=== PATIENT | male | born 1935 | race Caucasian/White ===

== ENCOUNTER 2018-06-29 14:58 | Inpatient (IN) ==
--- NOTE | 2018-06-29 15:08 | Emergency Department Note ---
Disposition Clinical Impression: Community acquired pneumonia Disposition: Admitted As Inpatient Condition: Fair Referrals: Kerwin Sutherland DO [Primary Care Provider] - Forms: ED Satisfaction Letter Time of Disposition: 16:47 SOB HPI - General Chief Complaint: ED Shortness of Breath/Dyspnea Stated Complaint: Shortness of Breath Time Seen by Provider: 06/29/18 15:08 Source: patient Mode of arrival: ambulatory Limitations: no limitations Nursing Notes Reviewed: Yes Vital Signs Reviewed: Yes - History of Present Illness 82-year-old gentleman who presents by EMS today for shortness of breath. He is a history of A. fib. He was recently diagnosed and treated for pneumonia level. He Is Started on Clindamycin Last Couple of Days for Some Enlarged Lymph Nodes. He States That He Has a Productive Cough with White Sputum. He Has Not Had Fevers or Chills at Home. He States He Just Feels Very Worn out He Feels Increasing in Short of Breath. No changes to his medications otherwise than the antibiotics. He is not missing any doses of his antibiotics. Pt Subjective Complaint: shortness of breath - Related Data Home Medications Medication Instructions Recorded Confirmed Aspirin [Lo-Dose Aspirin EC] 81 mg PO DAILY 02/04/16 06/29/18 Sertraline [Zoloft] 100 mg PO DAILY 02/04/16 06/29/18 Clindamycin [Cleocin] 300 mg PO Q8HR 06/29/18 06/29/18 Furosemide [Lasix] 40 mg PO DAILY 06/29/18 06/29/18 Midodrine HCl 5 mg PO BID 06/29/18 06/29/18 Previous Rx's Medication Instructions Recorded Acetaminophen [Tylenol] 650 mg PO Q6HR PRN tablet 03/05/18 Melatonin 3 mg PO HS tablet 03/05/18 Omeprazole [PriLOSEC] 40 mg PO DAILY@0630 capsule. 03/05/18 Allergies Allergy/AdvReac Type Severity Reaction Status Date / Time Penicillins [PCN] Allergy Hives Verified 06/29/18 15:13 Review of Systems: All other systems are negative except as noted/marked Chart generated with voice recognition software Nursing notes reviewed Old records reviewed Past Medical History - Past Medical History Attestation: Yes The following information was validated with the patient. Source: patient, old records reviewed, nursing notes reviewed Medical history: Reports: asthma, atrial fibrillation, cancer, CHF, COPD, hyperlipidemia Surgical history: Reports: cancer surgery, colectomy, herniorrhaphy, tonsilectomy, pacemaker Psychiatric history: Reports: anxiety, depression - Social History Smoking Status: Former smoker Smokeless Tobacco Status: Yes (chewing tobacco) Alcohol use: Reports: none Drug use: Reports: none Physical Exam General: NAD, VSS Head: normocephalic, atraumatic Eyes: EOMI, PERRLA mouth: Dry mucous membranes Neck: NO CLA, Supple Chest wall: normal rise, no crepitus, no deformity noted Lungs: Coarse breath sounds on the right with wheezing diminished lung sounds on the left Heart: Tachycardic and irregular Abd: soft, nontender, BS normal : deferred MSK: strength equal in all four extremities Ext: moves all four extremities, no obvious deformities Skin: cap refill normal, warm, dry neuro : CN2-12 grossly intact, A&Ox3 Psych: normal affect, not anxious Course Vital Signs Temperature 97.8 F 06/29/18 15:03 Pulse Rate 93 06/29/18 15:03 Respiratory Rate 17 06/29/18 15:03 Blood Pressure 90/69 06/29/18 15:03 O2 Sat by Pulse Oximetry 96 06/29/18 15:03 Temperature 97.8 F 06/29/18 15:03 Pulse Rate 104 06/29/18 16:42 Respiratory Rate 22 06/29/18 16:42 Blood Pressure 107/73 06/29/18 16:42 O2 Sat by Pulse Oximetry 93 06/29/18 16:42 Oxygen Delivery Oxygen Delivery Nasal Cannula Shortness of Breath/Dyspnea - [facility] Narrative Medical decision making narrative: 82-year-old gentleman who presents today with worsening shortness of breath from home. He is on clindamycin and just finished Levaquin at home. He has penicillin allergy. I started him on Rocephin and doxycycline here. He is a new pneumonia and his old pneumonia has not cleared. With IV fluids his heart rate has improved since in the 100s now. He is feeling a little better after one Xopenex treatment. I gave him Xopenex because when he got here his heart rate was in the 130s and his blood pressure was in the 90s systolic from the 2 albuterol she got by EMS. Blood cultures were obtained prior to antibiotic administration. Consult was placed to Dr. Rob at approximately 1645 for admission [id number] Rob orders placed. Patient's comfortable with admission into the hospital. - Medical Records Medical records reviewed: Yes I reviewed the patient's medical records. - Lab Data Lab results reviewed: Yes I reviewed the patient's lab results. Result diagrams: 06/29/18 15:57 06/29/18 15:57 Lab Results 06/29/18 06/29/18 06/29/18 Range/Units 15:57 15:57 15:57 WBC 9.0 (4.3-11.1) K/mcL RBC 3.81 L (4.19-5.50) M/mcL Hgb 11.5 L (12.9-16.9) g/dL Hct 36.3 L (37.5-50.1) % MCV 95.3 (83.0-100.0) fL MCH 30.2 (28.0-33.3) pg MCHC 31.7 (31.6-35.5) g/dL RDW 14.4 (11.5-14.5) % Plt Count 191 (140-400) K/mcL MPV 8.7 L (9.4-12.4) fL Immature Gran % 0.7 (0-4) % Seg Neutrophils % 78.1 % Lymphocytes % 13.0 % Monocytes % 7.0 % Eosinophils % 1.0 % Basophils % 0.2 % Neutrophils # 7.0 (1.6-8.9) K/mcL Lymphocytes # 1.2 (0.6-4.6) K/mcL Monocytes # 0.6 (0.0-1.3) K/mcL Eosinophils # 0.1 (0.0-0.6) K/mcL Basophils # 0.0 (0.0-0.2) K/mcL PT (9.4-12.1) Seconds INR APTT (26.0-36.0) Seconds Sample Site ABG pH (7.32-7.45) pH Units ABG pCO2 (35-45) mmHg ABG pO2 (85-104) mmHg ABG HCO3 (21-27) mEq/L ABG Total CO2 (20-26) mEq/L ABG O2 Saturation (95-98) % ABG Base Excess (-2 to 3) mEq/L Vitaliy Test O2 Delivery Device Inspired O2 (1-15=lpm [id number]=%) Sodium 138 (136-145) mEq/L Potassium 3.4 L (3.5-5.1) mEq/L Chloride 97 L (98-107) mEq/L Carbon Dioxide 34 H (23-29) mEq/L BUN 21 (8-23) mg/dL Creatinine 0.80 (0.70-1.30) mg/dL Est GFR ( Amer) > 60 (> 60) Est GFR (Non-Af Amer) > 60 (> 60) BUN/Creatinine Ratio 26 (6-26) Glucose 103 (70-105) mg/dL Calculated Osmolality 289 (280-300) Lactic Acid 1.2 (0.5-2.2) mmol/L Calcium 8.3 L (8.6-10.3) mg/dL Troponin I < 0.03 (< 0.04) ng/mL B-Natriuretic Peptide (Less than 100) pg/mL 06/29/18 06/29/18 06/29/18 Range/Units 15:57 15:57 15:57 WBC (4.3-11.1) K/mcL RBC (4.19-5.50) M/mcL Hgb (12.9-16.9) g/dL Hct (37.5-50.1) % MCV (83.0-100.0) fL MCH (28.0-33.3) pg MCHC (31.6-35.5) g/dL RDW (11.5-14.5) % Plt Count (140-400) K/mcL MPV (9.4-12.4) fL Immature Gran % (0-4) % Seg Neutrophils % % Lymphocytes % % Monocytes % % Eosinophils % % Basophils % % Neutrophils # (1.6-8.9) K/mcL Lymphocytes # (0.6-4.6) K/mcL Monocytes # (0.0-1.3) K/mcL Eosinophils # (0.0-0.6) K/mcL Basophils # (0.0-0.2) K/mcL PT 13.5 H (9.4-12.1) Seconds INR 1.2 APTT 31.8 (26.0-36.0) Seconds Sample Site R Radial ABG pH 7.49 H (7.32-7.45) pH Units ABG pCO2 40 (35-45) mmHg ABG pO2 64 L (85-104) mmHg ABG HCO3 30 H (21-27) mEq/L ABG Total CO2 31 H (20-26) mEq/L ABG O2 Saturation 94 L (95-98) % ABG Base Excess 6 H (-2 to 3) mEq/L Vitaliy Test Positive O2 Delivery Device Cannula Inspired O2 2.0 (1-15=lpm [id number]=%) Sodium (136-145) mEq/L Potassium (3.5-5.1) mEq/L Chloride (98-107) mEq/L Carbon Dioxide (23-29) mEq/L BUN (8-23) mg/dL Creatinine (0.70-1.30) mg/dL Est GFR ( Amer) (> 60) Est GFR (Non-Af Amer) (> 60) BUN/Creatinine Ratio (6-26) Glucose (70-105) mg/dL Calculated Osmolality (280-300) Lactic Acid (0.5-2.2) mmol/L Calcium (8.6-10.3) mg/dL Troponin I (< 0.04) ng/mL B-Natriuretic Peptide 2956 H (Less than 100) pg/mL - Radiology Data Radiology results reviewed: Yes I reviewed the patient's radiology results. EXAMINATION: SINGLE XRAY VIEW OF THE CHEST 06/29/2018 3:56 pm COMPARISON: 06/21/2018 HISTORY: ORDERING SYSTEM PROVIDED HISTORY: dyspnea Pneumonia, follow-up. FINDINGS: There has been interval development of abnormal airspace consolidation within the right upper lobe consistent with a right upper lobe pneumonia. There is improved aeration within the left lower lobe. There are small bilateral pleural effusions, left greater than right. The mediastinal and cardiac contours are stable. XR/XR chest 1V portable IMPRESSION: 1. New right upper lobe pneumonia. 2. Persistent but improving left lower lobe pneumonia. 3. Small bilateral pleural effusions. Follow-up imaging is recommended after treatment to ensure resolution. D/ / Gorge Calle MD / Gorge Calle MD Interpreting Provider: Gorge Calle MD - EKG Data EKG attestation: Yes I reviewed and interpreted this EKG. EKG results narrative: EKG interpreted by myself as a sinus rhythm with a rate of 94 QTc of [address] elevation
[2018-06-29] MEDS ORDERED: Levalbuterol Neb 1.25 MG/3 ML IH STA (15:20)
[2018-06-29] MEDS ORDERED: 0.9 % Sodium Chloride 1,000 ML IVC ONE (15:28)
[2018-06-29] MEDS ORDERED: methylPREDNISolone 125 MG/2 ML VIAL IVP ONE (15:28)
[2018-06-29 16:00] LABS: ABG Base Excess 6 mEq/L (-2 to 3); ABG HCO3 30 mEq/L (21-27); ABG Oxygen Saturation 94 % (95-98); ABG PCO2 40 mmHg (35-45); ABG PH 7.49 pH Units (7.32-7.45); ABG PO2 64 mmHg (85-104); ABG TCO2 31 mEq/L (20-26)
[2018-06-29 16:06] LABS: Basophils % 0.2 %; Eosinophils # 0.1 K/mcL (0.0-0.6); Hematocrit 36.3 % (37.5-50.1); Hemoglobin 11.5 g/dL (12.9-16.9); Immature Granulocytes % 0.7 % (0-4); Lymphocytes # 1.2 K/mcL (0.6-4.6); Mean Corpuscular HGB Conc 31.7 g/dL (31.6-35.5); Mean Corpuscular Hemoglobin 30.2 pg (28.0-33.3); Mean Corpuscular Volume 95.3 fL (83.0-100.0); Mean Platelet Volume 8.7 fL (9.4-12.4); Monocytes # 0.6 K/mcL (0.0-1.3); Platelet Count 191 K/mcL (140-400); Red Blood Count 3.81 M/mcL (4.19-5.50); Red Cell Distribution Width 14.4 % (11.5-14.5); Segmented Neutrophils % 78.1 %
[2018-06-29 16:13] LABS: INR 1.2; Prothrombin Time 13.5 Seconds (9.4-12.1)
[2018-06-29 16:16] LABS: Activated Partial Thrombo Time 31.8 Seconds (26.0-36.0)
[2018-06-29 16:24] LABS: BUN/Creatinine Ratio 26 (6-26); Blood Urea Nitrogen 21 mg/dL (8-23); Calcium 8.3 mg/dL (8.6-10.3); Carbon Dioxide 34 mEq/L (23-29); Chloride 97 mEq/L (98-107); Glucose 103 mg/dL (70-105); Osmolality,Calculated 289 (280-300); Potassium 3.4 mEq/L (3.5-5.1); Sodium 138 mEq/L (136-145); eGFR For Non-African Americans > 60 (> 60)
[2018-06-29 16:25] LABS: Troponin I < 0.03 ng/mL (< 0.04)
[2018-06-29] MEDS ORDERED: Doxycycline 100 MG in 0.9 % Sodium Chloride Mini Bag 100 ML IVPB ONE ×2 (16:31→18:08)
[2018-06-29] MEDS ORDERED: cefTRIAXone 1,000 MG in Water for inj. (sterile) 20 ML 10 ML IVP ONE (16:31)
[2018-06-29] MEDS ORDERED: Mag Hydrox/Al Hydrox/Simeth 30 ML UDC PO PRN (18:08)
[2018-06-29] MEDS ORDERED: MOM Conc 10 ML UD.LIQ PO PRN (18:08)
[2018-06-29] MEDS ORDERED: Naloxone 0.4 MG/ML INJ IVP PRN (18:08)
[2018-06-29] MEDS ORDERED: *HR* HYDROcodone/Acet 5/325 mg TABLET PO PRN (18:08)
[2018-06-29] MEDS ORDERED: Acetaminophen 325 MG TABLET PO PRN (18:08)
[2018-06-29] MEDS: Furosemide 40 MG TABLET PO SCH (19:07)
[2018-06-29] MEDS: Melatonin 3 MG TABLET PO SCH (22:18)
[2018-06-30 06:58] LABS: Hematocrit 32.4 % (37.5-50.1); Hemoglobin 10.3 g/dL (12.9-16.9); Mean Corpuscular HGB Conc 31.8 g/dL (31.6-35.5); Mean Corpuscular Hemoglobin 30.4 pg (28.0-33.3); Mean Corpuscular Volume 95.6 fL (83.0-100.0); Mean Platelet Volume 9.2 fL (9.4-12.4); Platelet Count 196 K/mcL (140-400); Red Blood Count 3.39 M/mcL (4.19-5.50); Red Cell Distribution Width 14.4 % (11.5-14.5)
[2018-06-30 07:22] LABS: BUN/Creatinine Ratio 27 (6-26); Blood Urea Nitrogen 22 mg/dL (8-23); Calcium 7.8 mg/dL (8.6-10.3); Carbon Dioxide 29 mEq/L (23-29); Chloride 101 mEq/L (98-107); Glucose 197 mg/dL (70-105); Magnesium 2.2 mg/dL (1.6-2.6); Osmolality,Calculated 295 (280-300); Potassium 3.8 mEq/L (3.5-5.1); Sodium 138 mEq/L (136-145); eGFR For Non-African Americans > 60 (> 60)
[2018-06-30] MEDS: Aspirin Enteric Coated 81 MG Tablet PO SCH (08:28)
[2018-06-30] MEDS: Furosemide 40 MG TABLET PO SCH (09:37)
[2018-06-30 10:21] LABS: Lymphocytes # 0.2 K/mcL (0.6-4.6); Monocytes # 0.2 K/mcL (0.0-1.3); Neutrophils # 8.4 K/mcL (1.6-8.9)
[2018-06-30 10:22] LABS: Hypersegmented Neutrophils Present (Not Present); Platelet Estimate Normal (Normal)
--- NOTE | 2018-06-30 12:34 | Internal Med History&Physical ---
Date of Encounter: 06/30/18 Time of Encounter: 11:50 Assessment and Plan (1) Community acquired pneumonia Current visit: Yes Status: Acute He was started on Rocephin and doxycycline in emergency room. Chest CT will be done to further evaluate. Qualifiers: Laterality: unspecified laterality Qualified Code(s): J18.9 - Pneumonia, unspecified organism (2) Nonischemic cardiomyopathy Current visit: No Status: Chronic Continue Lasix. A trial of Lanoxin will be given also. (3) Atrial fibrillation Current visit: No Status: Chronic Uncertainty why OAC not being used. Qualifiers: Atrial fibrillation type: chronic Qualified Code(s): I48.2 - Chronic atrial fibrillation (4) Anemia Current visit: Yes Status: Acute Anemia testing will be ordered. Qualifiers: Anemia type: unspecified type Qualified Code(s): D64.9 - Anemia, unspecified Internal Medicine - H&P: HPI Chief complaint: Dyspnea Admitted From: Emergency Dept Plans for Post Hospital Care: Home History of present illness: Mr. Bennett is a 82 year old male who came to emergency room complaining of increased dyspnea onset 1 week ago. He was seen at [facility] emergency room June 21 and was diagnosed with possible aspiration pneumonia. He was given Levaquin in emergency room and for 4 additional days afterward. He reports his breathing was significantly worse on June 28. He was started on clindamycin by his PCP providers. Dyspnea did not improve so he came to emergency room at [facility] on June 29 and was found to have evidence of right upper lobe pneumonia and persistent but improving left lower lobe pneumonia. He had bilateral small pleural effusions. He was admitted to [facility] floor for ongoing care needs. His respiratory history is significant for having smoked from approximately age [age]. He does not recall if PFTs have been done. He was recently prescribed oxygen for home use but uses it only on a prn basis. Past Med Surg Social Fam HX - Past Medical History Medical history: asthma, atrial fibrillation, cancer, CHF, COPD, hyperlipidemia Additional medical history: colon CA Psychiatric history: anxiety, depression - Past Surgical History Surgical History: cancer surgery, colectomy, herniorrhaphy, tonsilectomy, pacema ker Additional surgical history: colectomy - Social History Smoking Status: Former smoker Smokeless Tobacco Status: Yes (chewing tobacco) Alcohol use: none Drug use: none - Family History Father Hx Family Cardiac Disorders: Yes Mother Hx Family Endocrine Disorder: Yes (diabetes) Internal Medicine - H&P: Meds RX: Aspirin [Lo-Dose Aspirin EC] 81 mg PO DAILY 02/04/16 [History] RX: Sertraline [Zoloft] 100 mg PO DAILY 02/04/16 [History] RX: Acetaminophen [Tylenol] 650 mg PO Q6HR PRN tablet 03/05/18 [Rx] RX: Melatonin 3 mg PO HS tablet 03/05/18 [Rx] RX: Omeprazole [PriLOSEC] 40 mg PO DAILY@0630 capsule. 03/05/18 [Rx] Clindamycin [Cleocin] 300 mg PO Q8HR 06/29/18 [History] Furosemide [Lasix] 40 mg PO DAILY 06/29/18 [History] RX: Midodrine HCl 5 mg PO BID 06/29/18 [History] Allergy/AdvReac Type Severity Reaction Status Date / Time Penicillins [PCN] Allergy Hives Verified 06/29/18 15:13 All Systems PM: A 10-system review of systems was performed and is negative for pertinent findings except as documented above in the HPI. Review of systems: Gen.: His weight has been stable at approximately 67 kg since July 2017 [facility] hospitalization Cardiovascular: He has nonischemic cardiomyopathy with LVEF 25% on echocardiogram 03/05/2018. The interventricular septum and posterior wall thickness measurements were 1.10 and 1.20 cm respectively. There was LAE at 4.80 cm. A large pleural effusion was present at that time. Previous echo ardiogram on 07/25/2017 showed right atrial enlargement reported without measurement recorded. There was moderate mitral regurgitation, [id number] tricuspid regurgitation, and mild to moderate pulmonic regurgitation. He has had AICD placement July 2017. He is on Midodrine for hypotension. He denies DVT or pulmonary embolus. He has chronic atrial fibrillation and is on aspirin. Family reports he has been on Coumadin in the past but has not used it for several years. The reason it was discontinued is unknown. Respiratory: As per history of present illness GI: He has occasional constipation. He denies disorders of his liver gallbladder or exocrine pancreas : He has BPH. He denies other kidney or bladder disorders. Neurologic: He denies large distribution strokes or seizures. Endocrine: He is uncertain of lipid status but thinks he may have history of hyperlipidemia. He denies diabetes or thyroid disease Hematology/oncology: He was unaware he had anemia on almost all labs since December 2014. He reports history of colon cancer 2006 with segmental resection and primary anastomosis. There is been no recurrence. His most recent colonoscopy was approximately 2015. He denies other blood disorders or internal malignancies. Psychiatric: He has depression and is on Zoloft. He denies other mental health issues Muscle skeletal: He denies arthritis gout or other bone joint or muscle disorders. - Constitutional Vitals: Temp Pulse Resp BP Pulse Ox 98.5 F 76 16 80/46 93 06/30/18 07:00 06/30/18 08:26 06/30/18 07:00 06/30/18 08:26 06/30/18 07:00 Exam: Gen.: He is a well-developed lean male lying in bed who appears in minimal distress at present time HEENT: Head is atraumatic and normal cephalic. Eyes: EOMI. There is no scleral icterus. Mouth: Mucosa is moist. Neck: Supple and nontender. There is no thyromegaly or adenopathy noted. Heart: Irregularly irregular without murmurs or gallops Lungs: Has diminished breath sounds diffusely. No inspiratory crackles or exp iratory wheezing is heard. Back: Straight without flank tenderness or presacral edema Abdomen: There is well-healed longitudinal surgical scar from previous abdominal surgery. No masses or guarding are noted. He has a visible left inguinal hernia. Extremities: He is wearing DEBORAH hose which I did not remove. There is no edema palpated through the DEBORAH hose. 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 Neurologic: Mental status: He is talkative and able to answer questions appropriately. Cranial nerves: Smile is symmetric. Forehead wrinkles bilaterally. Tongue protrudes midline. EOMI. Motor: There is no pronator drift. Cerebellar: Finger to nose is intact bilaterally. Skin: Warm and dry Internal Med - H&P Results - Labs CBC & Chem 7: 06/30/18 06:46 06/30/18 06:46 Labs: Short CBC 06/29/18 06/30/18 Range/Units 15:57 06:46 WBC 9.0 8.9 (4.3-11.1) K/mcL Hgb 11.5 L 10.3 L (12.9-16.9) g/dL Hct 36.3 L 32.4 L (37.5-50.1) % Plt Count 191 196 (140-400) K/mcL Neutrophils # 7.0 8.4 (1.6-8.9) K/mcL BMP 06/29/18 06/30/18 15:57 06:46 Sodium 138 138 Potassium 3.4 L 3.8 Chloride 97 L 101 Carbon Dioxide 34 H 29 BUN 21 22 Creatinine 0.80 0.83 Glucose 103 197 H Calcium 8.3 L 7.8 L Cardiac Enzymes 06/29/18 Range/Units 15:57 Troponin I < 0.03 (< 0.04) ng/mL - ABG Interpretation ABG results: 06/29/18 15:57 ABG pH 7.49 H ABG pCO2 40 ABG pO2 64 L ABG HCO3 30 H ABG Total CO2 31 H ABG O2 Saturation 94 L ABG Base Excess 6 H - Impressions ITS Impressions Chest X-Ray 06/29/18 15:28 IMPRESSION: 1. New right upper lobe pneumonia. 2. Persistent but improving left lower lobe pneumonia. 3. Small bilateral pleural effusions. Follow-up imaging is recommended after treatment to ensure resolution. D/ / Gorge Calle MD / Gorge Calle MD Interpreting Provider: Gorge Calle MD
[2018-06-30] MEDS: MOM Conc 10 ML UD.LIQ PO SCH (12:52)
[2018-06-30] MEDS: *HR* Digoxin 0.25 MG TABLET PO SCH (12:52)
[2018-06-30] MEDS: cefTRIAXone 1,000 MG in Water for inj. (sterile) 20 ML 10 ML IVP SCH (17:36)
[2018-06-30] MEDS: Doxycycline 100 MG in 0.9 % Sodium Chloride Mini Bag 100 ML IVPB SCH (17:40)
[2018-06-30 17:59] LABS: % Iron Saturation 4 % (20-55); Iron 11 mcg/dL (65-175); Transferrin 212 mg/dL (203-362)
[2018-06-30 18:15] LABS: Ferritin 114 ng/mL (20-250)
[2018-06-30 18:21] LABS: Folate 15.6 ng/mL (3.0-16.0)
[2018-06-30 18:22] LABS: Estimated Average Glucose 151 mg/dl; Hemoglobin A1C 6.9 %
[2018-06-30] MEDS: Melatonin 3 MG TABLET PO SCH (21:11)
[2018-06-30] MEDS: Lactobacillus 1 EACH CAP.SPRINK PO SCH (21:11)
[2018-07-01] MEDS: *HR* Enoxaparin 40 MG/0.4 ML SYRINGE SQ SCH (06:18)
[2018-07-01] MEDS: Doxycycline 100 MG in 0.9 % Sodium Chloride Mini Bag 100 ML IVPB SCH ×2 (06:19→17:22)
[2018-07-01 07:02] LABS: Basophils % 0.1 %; Eosinophils # 0.1 K/mcL (0.0-0.6); Eosinophils % 1.1 %; Hematocrit 36.1 % (37.5-50.1); Hemoglobin 11.5 g/dL (12.9-16.9); Immature Granulocytes % 0.5 % (0-4); Lymphocytes # 1.1 K/mcL (0.6-4.6); Lymphocytes % 12.7 %; Mean Corpuscular HGB Conc 31.9 g/dL (31.6-35.5); Mean Corpuscular Hemoglobin 30.7 pg (28.0-33.3); Mean Corpuscular Volume 96.3 fL (83.0-100.0); Mean Platelet Volume 9.3 fL (9.4-12.4); Monocytes # 0.6 K/mcL (0.0-1.3); Monocytes % 6.3 %; Neutrophils # 6.9 K/mcL (1.6-8.9); Platelet Count 257 K/mcL (140-400); Red Blood Count 3.75 M/mcL (4.19-5.50); Red Cell Distribution Width 14.5 % (11.5-14.5); Segmented Neutrophils % 79.3 %
[2018-07-01] MEDS: Lactobacillus 1 EACH CAP.SPRINK PO SCH ×2 (08:53→21:17)
[2018-07-01] MEDS: Aspirin Enteric Coated 81 MG Tablet PO SCH (08:53)
[2018-07-01] MEDS: Furosemide 40 MG TABLET PO SCH (08:53)
[2018-07-01] MEDS: *HR* Digoxin 0.25 MG TABLET PO SCH (08:53)
--- NOTE | 2018-07-01 09:58 | Internal Med Progress Note ---
Date of Encounter: 07/01/18 Time of Encounter: 09:45 - Assessment and plan (1) Community acquired pneumonia Current Visit: Yes Status: Acute Assessment and plan: July 01. Continue Rocephin and doxycycline with lactobacillus. Qualifiers: Laterality: unspecified laterality Qualified Code(s): J18.9 - Pneumonia, unspecified organism (2) Nonischemic cardiomyopathy Current Visit: No Status: Chronic Assessment and plan: July 01. BN peptide significantly improved at 1892. Continue Lasix and Lanoxin. (3) Atrial fibrillation Current Visit: No Status: Chronic Assessment and plan: July 01. Continue aspirin. PT and OT evaluation will be done to assess walking stability. Consideration for transition from aspirin to OAC will be done if feasible. Qualifiers: Atrial fibrillation type: chronic Qualified Code(s): I48.2 - Chronic atrial fibrillation (4) Anemia Current Visit: Yes Status: Acute Assessment and plan: July 01. Anemia testing showed iron 11, transferrin saturation 4%, transferrin 212, ferritin 114, B12 255, and folate 15.6. He will be started on ferrous sulfate with ascorbic acid. MMA will be checked to further assess B12 status. Qualifiers: Anemia type: unspecified type Qualified Code(s): D64.9 - Anemia, unspecified (5) Weakness Current Visit: Yes Status: Acute Assessment and plan: July 01. PT and OT evaluations will be done. - Subjective Interval history: July 01. He has no new complaints. - Constitutional Vitals: Temp Pulse Resp BP Pulse Ox 97.5 F L 87 16 102/67 95 07/01/18 06:38 07/01/18 06:38 07/01/18 06:38 07/01/18 06:38 07/01/18 06:38 Exam: Is resting comfortably in bed and appears in no acute distress. His affect is bright and cheerful. I reviewed his medications, lab results, and CT report. Internal Medicine: Result - Labs CBC & Chem 7: 07/01/18 05:44 06/30/18 06:46 Labs: Short CBC 06/30/18 07/01/18 Range/Units 06:46 05:44 WBC 8.7 (4.3-11.1) K/mcL Hgb 11.5 L (12.9-16.9) g/dL Hct 36.1 L (37.5-50.1) % Plt Count 257 (140-400) K/mcL Neutrophils # 8.4 6.9 (1.6-8.9) K/mcL - ABG Interpretation ABG results: ABG ABG pH 7.49 pH Units (7.32-7.45) H 06/29/18 15:57 ABG pCO2 40 mmHg (35-45) 06/29/18 15:57 ABG pO2 64 mmHg (85-104) L 06/29/18 15:57 ABG O2 Saturation 94 % (95-98) L 06/29/18 15:57 PT/INR, D-dimer PT 13.5 Seconds (9.4-12.1) H 06/29/18 15:57 - Impressions Impressions Chest CT 06/30/18 12:30 IMPRESSION: 1. Blood pool density of the heart is lower than that of the myocardium, typical of anemia. 2. Bilateral pleural effusion with bibasilar consolidation, left greater than right. 3. Patchy pneumonitis predominantly inferior right upper lobe corresponding to opacity seen on prior chest radiograph series. 4. Indeterminate ground-glass pulmonary nodules medial right upper lung may be related to the acute infectious process but should be followed with CT chest in 3 months to ensure stability. 5. Indeterminate right hepatic lobe lesion may reflect a simple cyst. Attention to this on follow-up CT abdomen with IV contrast recommended. D/ / Alex Matamoros / Alex Matamoros Interpreting Provider: Alex Matamoros Consult Discharge Plan - Plan Referrals: Kerwin Sutherland DO [Primary Care Provider] - 1 week
[2018-07-01] MEDS: cefTRIAXone 1,000 MG in Water for inj. (sterile) 20 ML 10 ML IVP SCH (17:23)
[2018-07-01] MEDS: Melatonin 3 MG TABLET PO SCH (21:17)
[2018-07-02] MEDS: Doxycycline 100 MG in 0.9 % Sodium Chloride Mini Bag 100 ML IVPB SCH ×2 (06:19→16:55)
[2018-07-02] MEDS: Ascorbic Acid 500 MG TABLET PO SCH (06:19)
[2018-07-02] MEDS: *HR* Enoxaparin 40 MG/0.4 ML SYRINGE SQ SCH (06:19)
[2018-07-02 07:14] LABS: Basophils % 0.3 %; Eosinophils # 0.2 K/mcL (0.0-0.6); Eosinophils % 1.5 %; Hematocrit 35.5 % (37.5-50.1); Hemoglobin 11.3 g/dL (12.9-16.9); Immature Granulocytes % 0.4 % (0-4); Lymphocytes # 0.9 K/mcL (0.6-4.6); Lymphocytes % 8.6 %; Mean Corpuscular HGB Conc 31.8 g/dL (31.6-35.5); Mean Corpuscular Hemoglobin 30.2 pg (28.0-33.3); Mean Corpuscular Volume 94.9 fL (83.0-100.0); Mean Platelet Volume 8.9 fL (9.4-12.4); Monocytes # 0.8 K/mcL (0.0-1.3); Monocytes % 7.2 %; Neutrophils # 8.7 K/mcL (1.6-8.9); Platelet Count 292 K/mcL (140-400); Red Blood Count 3.74 M/mcL (4.19-5.50); Red Cell Distribution Width 14.3 % (11.5-14.5)
[2018-07-02 07:32] LABS: BUN/Creatinine Ratio 28 (6-26); Blood Urea Nitrogen 22 mg/dL (8-23); Calcium 8.5 mg/dL (8.6-10.3); Carbon Dioxide 31 mEq/L (23-29); Chloride 100 mEq/L (98-107); Glucose 84 mg/dL (70-105); Osmolality,Calculated 285 (280-300); Potassium 4.6 mEq/L (3.5-5.1); Sodium 136 mEq/L (136-145); eGFR For Non-African Americans > 60 (> 60)
[2018-07-02] MEDS: Furosemide 40 MG TABLET PO SCH (08:15)
[2018-07-02] MEDS: Lactobacillus 1 EACH CAP.SPRINK PO SCH ×2 (08:15→20:36)
[2018-07-02] MEDS: Aspirin Enteric Coated 81 MG Tablet PO SCH (08:15)
[2018-07-02] MEDS: *HR* Digoxin 0.25 MG TABLET PO SCH (08:15)
--- NOTE | 2018-07-02 09:43 | Internal Med Progress Note ---
Date of Encounter: 07/02/18 Time of Encounter: 09:30 - Assessment and plan (1) Community acquired pneumonia Current Visit: Yes Status: Acute Assessment and plan: July 01. Continue Rocephin and doxycycline with lactobacillus. Qualifiers: Laterality: unspecified laterality Qualified Code(s): J18.9 - Pneumonia, unspecified organism (2) Nonischemic cardiomyopathy Current Visit: No Status: Chronic Assessment and plan: July 01. BN peptide significantly improved at 1892. Continue Lasix and Lanoxin. July 02. BN peptide has risen significantly to 3824. Continue Lasix Lanoxin. Start low-dose Coreg. (3) Atrial fibrillation Current Visit: No Status: Chronic Assessment and plan: July 01. Continue aspirin. PT and OT evaluation will be done to assess walking stability. Consideration for transition from aspirin to OAC will be done if feasible. Qualifiers: Atrial fibrillation type: chronic Qualified Code(s): I48.2 - Chronic atrial fibrillation (4) Anemia Current Visit: Yes Status: Acute Assessment and plan: July 01. Anemia testing showed iron 11, transferrin saturation 4%, transferrin 212, ferritin 114, B12 255, and folate 15.6. He will be started on ferrous sulfate with ascorbic acid. MMA will be checked to further assess B12 status. Qualifiers: Anemia type: unspecified type Qualified Code(s): D64.9 - Anemia, unspecified (5) Weakness Current Visit: Yes Status: Acute Assessment and plan: July 01. PT and OT evaluations will be done. - Subjective Interval history: July 01. He has no new complaints. July 02. He has no new complaints. - Constitutional Vitals: Temp Pulse Resp BP Pulse Ox 97.8 F 86 16 116/67 94 07/02/18 06:30 07/02/18 06:30 07/02/18 06:30 07/02/18 06:30 07/02/18 06:30 Exam: He is resting comfortably in bed and appears in no acute distress. His affect is overall cheerful. Extremities show no edema. Heart is regular without murmurs gallops or ectopics. Lungs are clear anteriorly and laterally. I reviewed his medications and lab results. Internal Medicine: Result - Labs CBC & Chem 7: 07/02/18 06:36 07/02/18 06:36 Labs: Short CBC 07/02/18 Range/Units 06:36 WBC 10.6 (4.3-11.1) K/mcL Hgb 11.3 L (12.9-16.9) g/dL Hct 35.5 L (37.5-50.1) % Plt Count 292 (140-400) K/mcL Neutrophils # 8.7 (1.6-8.9) K/mcL BMP 07/02/18 06:36 Sodium 136 Potassium 4.6 Chloride 100 Carbon Dioxide 31 H BUN 22 Creatinine 0.80 Glucose 84 Calcium 8.5 L - ABG Interpretation ABG results: ABG ABG pH 7.49 pH Units (7.32-7.45) H 06/29/18 15:57 ABG pCO2 40 mmHg (35-45) 06/29/18 15:57 ABG pO2 64 mmHg (85-104) L 06/29/18 15:57 ABG O2 Saturation 94 % (95-98) L 06/29/18 15:57 PT/INR, D-dimer PT 13.5 Seconds (9.4-12.1) H 06/29/18 15:57 Consult Discharge Plan - Plan Referrals: Kerwin Sutherland DO [Primary Care Provider] - 1 week
[2018-07-02] MEDS: MOM Conc 10 ML UD.LIQ PO SCH (12:43)
[2018-07-02] MEDS: Methyl Salicylate/Menthol 28 GM TUBE TP SCH ×2 (15:14→20:36)
[2018-07-02] MEDS: cefTRIAXone 1,000 MG in Water for inj. (sterile) 20 ML 10 ML IVP SCH (16:55)
--- NOTE | 2018-07-02 17:15 | Electrocardiograph Report ---
[place] [id number] Test Date: 2018-06-29 Pat Name: Fercho Bennett Department: EDP-14 Room: [facility] Gender: M [employer]: : 1935 Requested By: Karyna Veliz Order Number: [id number] Reading MD: Elise Byrne Measurements Intervals [place] Rate: 94 P: 124 OR: 224 QRS: 254 QRSD: 103 T: -43 QT: 443 QTc: 554 Interpretive Statements Right and left arm electrode reversal Sinus rhythm Ventricular premature complexes Prolonged OR interval RSR' in V1 or V2, right VCD or RVH Inferior infarct, old Prolonged QT interval Electronically Signed On 07-02-2018 17:13:31 EDT by Elise Byrne
[2018-07-02] MEDS: Melatonin 3 MG TABLET PO SCH (20:36)
[2018-07-03] MEDS: Doxycycline 100 MG in 0.9 % Sodium Chloride Mini Bag 100 ML IVPB SCH (06:10)
[2018-07-03] MEDS: *HR* Enoxaparin 40 MG/0.4 ML SYRINGE SQ SCH (06:11)
[2018-07-03] MEDS: Ascorbic Acid 500 MG TABLET PO SCH (06:11)
[2018-07-03 08:27] LABS: Basophils % 0.3 %; Eosinophils # 0.2 K/mcL (0.0-0.6); Eosinophils % 2.4 %; Hematocrit 34.5 % (37.5-50.1); Immature Granulocytes % 0.6 % (0-4); Lymphocytes % 11.4 %; Mean Corpuscular HGB Conc 31.9 g/dL (31.6-35.5); Mean Corpuscular Hemoglobin 30.3 pg (28.0-33.3); Mean Platelet Volume 8.8 fL (9.4-12.4); Monocytes # 0.6 K/mcL (0.0-1.3); Monocytes % 6.4 %; Neutrophils # 6.8 K/mcL (1.6-8.9); Platelet Count 305 K/mcL (140-400); Red Blood Count 3.63 M/mcL (4.19-5.50); Red Cell Distribution Width 14.1 % (11.5-14.5); Segmented Neutrophils % 78.9 %
[2018-07-03] MEDS: Lactobacillus 1 EACH CAP.SPRINK PO SCH (08:28)
[2018-07-03] MEDS: Aspirin Enteric Coated 81 MG Tablet PO SCH (08:29)
[2018-07-03] MEDS: *HR* Digoxin 0.25 MG TABLET PO SCH (08:29)
[2018-07-03] MEDS: Methyl Salicylate/Menthol 28 GM TUBE TP SCH (08:38)
[2018-07-03] MEDS: Furosemide 40 MG TABLET PO SCH (11:21)
--- NOTE | 2018-07-03 12:01 | Discharge Summary ---
Orders not resulted at time of discharge: Pending orders 06/29/18 15:57 Culture,Blood [BC] Stat 07/02/18 06:36 MMA (VIT B12 STATUS) AM 0400 Date of Encounter: 07/03/18 Time of Encounter: 11:45 - Discharge Diagnosis (1) Community acquired pneumonia Priority: Primary Status: Acute Qualifiers: Laterality: unspecified laterality Qualified Code(s): J18.9 - Pneumonia, unspecified organism (2) Nonischemic cardiomyopathy Priority: Secondary Status: Chronic (3) Atrial fibrillation Priority: Secondary Status: Chronic Qualifiers: Atrial fibrillation type: chronic Qualified Code(s): I48.2 - Chronic atrial fibrillation (4) Anemia Priority: Secondary Status: Acute Qualifiers: Anemia type: iron deficiency Iron deficiency anemia type: unspecified iron deficiency Qualified Code(s): D50.9 - Iron deficiency anemia, unspecified (5) Weakness Priority: Secondary Status: Chronic Hospital course: Mr. Bennett is a 82 year old male who came to emergency room complaining of increased dyspnea onset 1 week ago. He was seen at [facility] emergency room June 21 and was diagnosed with possible aspiration pneumonia. He was given Levaquin in emergency room and for 4 additional days afterward. He reports his breathing was significantly worse on June 28. He was started on clindamycin by his PCP providers. Dyspnea did not improve so he came to emergency room at [facility] on June 29 and was found to have evidence of right upper lobe pneumonia and persistent but improving left lower lobe pneumonia. He had bilateral small pleural ef fusions. He was admitted to [facility] floor for ongoing care needs. Initial orders were written by the emergency room physician. I saw him on June 30 and performed a history and physical. He was started on Rocephin and doxycycline in emergency room empirically for pneumonia. Chest CT was done to further evaluate. There was bilateral pleural effusions with bibasilar consolidation left greater than right. There was patchy pneumonitis predominantly in the inferior right upper lobe. There was indeterminate groundglass pulmonary nodules in the medial right upper lung with recommendation for follow-up CT in 3 months to ensure stability. There was indeterminate right hepatic lobe lesion possibly representing a simple cyst. A follow-up CT of the abdomen will be done as recommended. He had clinical stability and remained afebrile during his acute-care stay. WBC remained normal with minimal change in borderline left shift on differential. He will continue with IV antibiotic and probiotic for a few days in swing bed. He was continued on Lasix. Lanoxin was added for his nonischemic cardiomyopathy. Dyspnea lessened and BN peptide decreased to 1755 by day of discharge. He will continue this regimen in swing bed. Supplemental potassium was given and hypokalemia resolved. Anemia testing showed iron 11, transferrin saturation 4%, transferrin 212, ferritin 114, B12 255, and folate 15.6. He was started on oral ferrous sulfate with ascorbic acid. MMA was ordered to further assess his B12 status and result is pending at time of discharge to swing bed. TSH returned minimally elevated at 5.713. He had physical therapy and occupational therapy evaluations with ongoing interventions. He made satisfactory progress. On July 03 arrangements were complete for him to be discharged to swing bed for ongoing care needs. - Time Spent with Patient Total time spent providing and/or coordinating discharge services: - Discharge Medications Prescriptions: New Acetaminophen [Tylenol] 650 mg PO Q6HR PRN tablet PRN Reason: Mild Pain/Fever Doxycycline 100 mg IVPB Q12HR vial Ascorbic Acid [Vitamin C] 500 mg PO 0630 tablet Carvedilol [Coreg] 3.125 mg PO BIDWM tablet cefTRIAXone [Rocephin] 1,000 mg IVP Q24H vial Digoxin [Lanoxin] 0.25 mg PO DAILY tablet Ferrous Sulfate 325 mg PO 0630 tablet Lactobacillus [Culturelle] 1 each PO BID cap.sprink Methyl Salicylate/Menthol [Bengay] 1 appl TP BID tube MOM Conc [MILK OF MAGNESIA conc] 10 ml PO Q48H ud.liq Potassium Chloride 10 meq PO DAILY tab.er.prt Rivaroxaban [Xarelto] 15 mg PO 1700 365 Days tablet Zolpidem [Ambien] 5 mg PO HS PRN tablet PRN Reason: Insomnia Continue Acetaminophen [Tylenol] 650 mg PO Q6HR PRN tablet PRN Reason: Fever or pain Omeprazole [PriLOSEC] 40 mg PO DAILY@0630 capsule. Melatonin 3 mg PO HS tablet Sertraline [Zoloft] 100 mg PO DAILY Furosemide [Lasix] 40 mg PO DAILY Midodrine HCl 5 mg PO BID Discontinued Aspirin [Lo-Dose Aspirin EC] 81 mg PO DAILY Clindamycin [Cleocin] 300 mg PO Q8HR Home Medications: Sertraline [Zoloft] 100 mg PO DAILY 02/04/16 [History] Acetaminophen [Tylenol] 650 mg PO Q6HR PRN tablet 03/05/18 [Rx] Melatonin 3 mg PO HS tablet 03/05/18 [Rx] Omeprazole [PriLOSEC] 40 mg PO DAILY@0630 capsule. 03/05/18 [Rx] Furosemide [Lasix] 40 mg PO DAILY 06/29/18 [History] Midodrine HCl 5 mg PO BID 06/29/18 [History] Acetaminophen [Tylenol] 650 mg PO Q6HR PRN tablet 07/03/18 [Rx] Ascorbic Acid [Vitamin C] 500 mg PO 0630 tablet 07/03/18 [Rx] Carvedilol [Coreg] 3.125 mg PO BIDWM tablet 07/03/18 [Rx] Digoxin [Lanoxin] 0.25 mg PO DAILY tablet 07/03/18 [Rx] Doxycycline 100 mg IVPB Q12HR vial 07/03/18 [Rx] Ferrous Sulfate 325 mg PO 0630 tablet 07/03/18 [Rx] Lactobacillus [Culturelle] 1 each PO BID cap.sprink 07/03/18 [Rx] MOM Conc [MILK OF MAGNESIA conc] 10 ml PO Q48H ud.liq 07/03/18 [Rx] Methyl Salicylate/Menthol [Bengay] 1 appl TP BID tube 07/03/18 [Rx] Potassium Chloride 10 meq PO DAILY tab.er.prt 07/03/18 [Rx] Rivaroxaban [Xarelto] 15 mg PO 1700 365 Days tablet 07/03/18 [Rx] Zolpidem [Ambien] 5 mg PO HS PRN tablet 07/03/18 [Rx] cefTRIAXone [Rocephin] 1,000 mg IVP Q24H vial 07/03/18 [Rx] Allergies/Adverse Reactions: Allergy/AdvReac Type Severity Reaction Status Date / Time Penicillins [PCN] Allergy Hives Verified 06/29/18 15:13 Date of admission: 06/30/18 14:28 Primary care physician: Kerwin Sutherland DO Consults: 06/29/18 18:48 Consult to Nutrition [CONS] Routine Comment: Consulting Provider: NUTRITION Reason for Dietary Consult: PO Supplementation 07/01/18 09:52 Consult to Occupational Therapy [CONS] Routine Comment: Evaluate, develop and implement POC Reason for Consult: Weakness Does patient have active BEDREST order?: No Is patient medically & hemodynamically stable?: Yes Patient assessed for mobility or mobilized this visit?: Yes Consult to Physical Therapy [CONS] Routine Comment: Evaluate, develop and implement POC Reason for Consult: Weakness Does patient have active BEDREST order?: No Is patient medically & hemodynamically stable?: Yes Patient assessed for mobility or mobilized this visit?: Yes - Constitutional Vitals: Temp Pulse Resp BP Pulse Ox 98.2 F 79 17 87/54 96 07/03/18 06:36 07/03/18 06:36 07/03/18 06:36 07/03/18 06:36 07/03/18 08:59 - Patient Status Disposition: Transfer Hospital Swing Bed Condition: Fair - Discharge Instructions
[2018-07-03 15:31] VITALS: BP 96/58
== END 2018-07-03 15:13 | disposition other institution (70) | DRG 194 ==
LOC: INPPIK 14:58 → EMEROOPIK 14:58 → INPPIK 18:06
PROVIDERS: ADMIT Internal Medicine; ATTEND Internal Medicine

== ENCOUNTER 2018-07-03 14:56 | Inpatient (IN) ==
[2018-07-03] MEDS ORDERED: Acetaminophen 325 MG TABLET PO PRN (15:33)
[2018-07-03] MEDS ORDERED: CefTRIAXone 1,000 MG VIAL IVP SCH (16:00)
[2018-07-03] MEDS: cefTRIAXone 1,000 MG in Water for inj. (sterile) 20 ML 10 ML IVPB SCH (17:51)
[2018-07-03] MEDS: *HR* Rivaroxaban 15 MG TABLET PO SCH (17:51)
[2018-07-03] MEDS ORDERED: Doxycycline 100 MG VIAL IVPB SCH (18:00)
[2018-07-03] MEDS: Doxycycline 100 MG in 0.9 % Sodium Chloride Mini Bag 100 ML IVPB SCH (20:25)
[2018-07-03] MEDS: Methyl Salicylate/Menthol 28 GM TUBE TP SCH (21:15)
[2018-07-03] MEDS: Melatonin 3 MG TABLET PO SCH (21:16)
[2018-07-03] MEDS: Lactobacillus 1 EACH CAP.SPRINK PO SCH (21:16)
[2018-07-04] MEDS: Doxycycline 100 MG in 0.9 % Sodium Chloride Mini Bag 100 ML IVPB SCH (06:28)
[2018-07-04] MEDS: Ascorbic Acid 500 MG TABLET PO SCH (06:30)
[2018-07-04] MEDS: *HR* Digoxin 0.25 MG TABLET PO SCH (08:45)
[2018-07-04] MEDS: Furosemide 40 MG TABLET PO SCH (08:45)
[2018-07-04] MEDS: Lactobacillus 1 EACH CAP.SPRINK PO SCH ×2 (08:45→20:23)
[2018-07-04] MEDS: Methyl Salicylate/Menthol 28 GM TUBE TP SCH ×3 (08:47→20:23)
[2018-07-04] MEDS: MOM Conc 10 ML UD.LIQ PO SCH (11:53)
--- NOTE | 2018-07-04 15:02 | Internal Med Progress Note ---
Date of Encounter: 07/04/18 Time of Encounter: 14:53 - Assessment and plan (1) Community acquired pneumonia Current Visit: No Status: Acute Assessment and plan: July 04. Continue IV Rocephin and doxycycline with lactobacillus. Qualifiers: Laterality: unspecified laterality Qualified Code(s): J18.9 - Pneumonia, unspecified organism (2) Nonischemic cardiomyopathy Current Visit: No Status: Chronic Assessment and plan: July 04. Continue Coreg, Lanoxin, and Lasix. Check labs in a.m. (3) Atrial fibrillation Current Visit: No Status: Chronic Assessment and plan: July 04. He was started on Xarelto at time of discharge into swing bed since he appeared to be low fall risk Qualifiers: Atrial fibrillation type: chronic Qualified Code(s): I48.2 - Chronic atrial fibrillation (4) Anemia Current Visit: No Status: Acute Assessment and plan: July 04. Continue ferrous sulfate with ascorbic acid. Await MMA. Qualifiers: Anemia type: iron deficiency Iron deficiency anemia type: unspecified iron deficiency Qualified Code(s): D50.9 - Iron deficiency anemia, unspecified (5) Weakness Current Visit: No Status: Chronic Assessment and plan: July 04. Continue PT and OT intervention. - Subjective Interval history: July 04. He was hospitalized in acute-care at [facility] June 29- after presenting with dyspnea. CT scan showed bilateral pneumonia. He was given IV Rocephin and doxycycline with lactobacillus. Lanoxin was started for cardiomyopathy and Lasix was continued. Coreg was added on July 02. BN peptide decreased to 1755 on July 03 and dyspnea was significantly improved. He was started on ferrous sulfate with ascorbic acid for evidence of iron deficiency anemia. MMA is pending to assess B12 status. He had therapy consultation with ongoing intervention and made satisfactory progress. It was felt he would benefit from swing bed stay. He has no complaints today and feels well. - Constitutional Vitals: Temp Pulse Resp BP Pulse Ox 97.4 F L 72 18 114/70 98 07/04/18 07:21 07/04/18 07:21 07/04/18 07:21 07/04/18 07:21 07/04/18 07:21 Exam: He is resting comfortably in bed and appears in no acute distress. His affect is bright and cheerful. I reviewed his medications and lab results. Consult Discharge Plan - Plan Referrals: NONE,PCP [Primary Care Provider] - 1 week
[2018-07-04] MEDS: cefTRIAXone 1,000 MG in Water for inj. (sterile) 20 ML 10 ML IVPB SCH (19:15)
[2018-07-04] MEDS: *HR* Rivaroxaban 15 MG TABLET PO SCH (19:15)
[2018-07-04] MEDS: Melatonin 3 MG TABLET PO SCH (20:23)
[2018-07-05] MEDS: Ascorbic Acid 500 MG TABLET PO SCH (06:40)
[2018-07-05] MEDS: Doxycycline 100 MG in 0.9 % Sodium Chloride Mini Bag 100 ML IVPB SCH ×3 (06:41→18:18)
[2018-07-05 07:12] LABS: Basophils % 0.4 %; Eosinophils # 0.2 K/mcL (0.0-0.6); Eosinophils % 3.2 %; Hematocrit 35.7 % (37.5-50.1); Hemoglobin 11.4 g/dL (12.9-16.9); Immature Granulocytes % 0.6 % (0-4); Lymphocytes # 1.1 K/mcL (0.6-4.6); Lymphocytes % 15.5 %; Mean Corpuscular HGB Conc 31.9 g/dL (31.6-35.5); Mean Corpuscular Hemoglobin 30.2 pg (28.0-33.3); Mean Corpuscular Volume 94.4 fL (83.0-100.0); Mean Platelet Volume 8.5 fL (9.4-12.4); Monocytes # 0.5 K/mcL (0.0-1.3); Monocytes % 7.4 %; Platelet Count 393 K/mcL (140-400); Red Blood Count 3.78 M/mcL (4.19-5.50); Red Cell Distribution Width 13.9 % (11.5-14.5); Segmented Neutrophils % 72.9 %
[2018-07-05 07:28] LABS: BUN/Creatinine Ratio 30 (6-26); Blood Urea Nitrogen 26 mg/dL (8-23); Calcium 8.9 mg/dL (8.6-10.3); Carbon Dioxide 35 mEq/L (23-29); Chloride 98 mEq/L (98-107); Digoxin 1.3 ng/mL (0.8-2.0); Glucose 85 mg/dL (70-105); Osmolality,Calculated 288 (280-300); Potassium 4.6 mEq/L (3.5-5.1); Sodium 137 mEq/L (136-145); eGFR For Non-African Americans > 60 (> 60)
[2018-07-05] MEDS: Methyl Salicylate/Menthol 28 GM TUBE TP SCH ×2 (09:35→20:47)
[2018-07-05] MEDS: *HR* Digoxin 0.25 MG TABLET PO SCH (09:35)
[2018-07-05] MEDS: Furosemide 40 MG TABLET PO SCH (09:35)
[2018-07-05] MEDS: Lactobacillus 1 EACH CAP.SPRINK PO SCH ×2 (09:35→20:45)
--- NOTE | 2018-07-05 15:52 | Internal Med Progress Note ---
Date of Encounter: 07/05/18 Time of Encounter: 15:45 - Assessment and plan (1) Community acquired pneumonia Current Visit: No Status: Acute Assessment and plan: July 04. Continue IV Rocephin and doxycycline with lactobacillus. July 05. Continue antibiotic and probiotic with lactobacillus until July 07. Qualifiers: Laterality: unspecified laterality Qualified Code(s): J18.9 - Pneumonia, unspecified organism (2) Nonischemic cardiomyopathy Current Visit: No Status: Chronic Assessment and plan: July 04. Continue Coreg, Lanoxin, and Lasix. Check labs in a.m. July 05. BN peptide further decreased to 1340. Continue present regimen. (3) Atrial fibrillation Current Visit: No Status: Chronic Assessment and plan: July 04. He was started on Xarelto at time of discharge into swing bed since he appeared to be low fall risk July 05. Continue Xarelto Qualifiers: Atrial fibrillation type: chronic Qualified Code(s): I48.2 - Chronic atrial fibrillation (4) Anemia Current Visit: No Status: Acute Assessment and plan: July 04. Continue ferrous sulfate with ascorbic acid. Await MMA. Qualifiers: Anemia type: iron deficiency Iron deficiency anemia type: unspecified iron deficiency Qualified Code(s): D50.9 - Iron deficiency anemia, unspecified (5) Weakness Current Visit: No Status: Chronic Assessment and plan: July 04. Continue PT and OT intervention. - Subjective Interval history: July 04. He was hospitalized in acute-care at [facility] June 29- after presenting with dyspnea. CT scan showed bilateral pneumonia. He was given IV Rocephin and doxycycline with lactobacillus. Lanoxin was started for cardiomyopathy and Lasix was continued. Coreg was added on July 02. BN peptide decreased to 1755 on July 03 and dyspnea was significantly improved. He was started on ferrous sulfate with ascorbic acid for evidence of iron deficiency anemia. MMA is pending to assess B12 status. He had therapy consultation with ongoing intervention and made satisfactory progress. It was felt he would benefit from swing bed stay. He has no complaints today and feels well. July 05. He states he has an occasional "gas" feeling in his mid chest area. He has also had occasional pain in his left chest area. He denies significant dyspnea. - Constitutional Vitals: Temp Pulse Resp BP Pulse Ox 97.9 F 81 19 81/51 92 07/05/18 06:39 07/05/18 06:39 07/05/18 06:39 07/05/18 06:39 07/05/18 06:39 Exam: He is resting comfortably in bed and appears in no acute distress. His affect is bright and cheerful. I reviewed his medications and lab results. Internal Medicine: Result - Labs CBC & Chem 7: 07/05/18 06:50 07/05/18 06:50 Labs: Short CBC 07/05/18 Range/Units 06:50 WBC 6.9 (4.3-11.1) K/mcL Hgb 11.4 L (12.9-16.9) g/dL Hct 35.7 L (37.5-50.1) % Plt Count 393 (140-400) K/mcL Neutrophils # 5.0 (1.6-8.9) K/mcL BMP 07/05/18 06:50 Sodium 137 Potassium 4.6 Chloride 98 Carbon Dioxide 35 H BUN 26 H Creatinine 0.86 Glucose 85 Calcium 8.9 Consult Discharge Plan - Plan Referrals: NONE,PCP [Primary Care Provider] - 1 week
[2018-07-05] MEDS: *HR* Rivaroxaban 15 MG TABLET PO SCH (18:17)
[2018-07-05] MEDS: Simethicone 80 MG TAB.CHEW PO PRN (18:17)
[2018-07-05] MEDS: cefTRIAXone 1,000 MG in Water for inj. (sterile) 20 ML 10 ML IVPB SCH (18:18)
[2018-07-05] MEDS: Melatonin 3 MG TABLET PO SCH (20:45)
[2018-07-06] MEDS: Ascorbic Acid 500 MG TABLET PO SCH (06:42)
[2018-07-06] MEDS: Doxycycline 100 MG in 0.9 % Sodium Chloride Mini Bag 100 ML IVPB SCH ×2 (06:42→18:18)
[2018-07-06] MEDS: Furosemide 40 MG TABLET PO SCH (08:07)
[2018-07-06] MEDS: Methyl Salicylate/Menthol 28 GM TUBE TP SCH ×2 (08:07→20:59)
[2018-07-06] MEDS: Lactobacillus 1 EACH CAP.SPRINK PO SCH ×2 (08:07→20:59)
[2018-07-06] MEDS: *HR* Digoxin 0.25 MG TABLET PO SCH (08:07)
[2018-07-06] MEDS: MOM Conc 10 ML UD.LIQ PO SCH (12:33)
[2018-07-06] MEDS: *HR* Rivaroxaban 15 MG TABLET PO SCH (18:10)
[2018-07-06] MEDS: Simethicone 80 MG TAB.CHEW PO PRN (18:11)
[2018-07-06] MEDS: cefTRIAXone 1,000 MG in Water for inj. (sterile) 20 ML 10 ML IVPB SCH (18:19)
[2018-07-06] MEDS: Melatonin 3 MG TABLET PO SCH (20:59)
[2018-07-07] MEDS: Doxycycline 100 MG in 0.9 % Sodium Chloride Mini Bag 100 ML IVPB SCH (05:56)
[2018-07-07] MEDS: Ascorbic Acid 500 MG TABLET PO SCH (05:56)
[2018-07-07 06:49] LABS: Basophils # 0.1 K/mcL (0.0-0.2); Basophils % 0.8 %; Eosinophils # 0.2 K/mcL (0.0-0.6); Eosinophils % 2.8 %; Hematocrit 36.5 % (37.5-50.1); Hemoglobin 11.7 g/dL (12.9-16.9); Immature Granulocytes % 0.5 % (0-4); Lymphocytes # 1.2 K/mcL (0.6-4.6); Lymphocytes % 16.4 %; Mean Corpuscular HGB Conc 32.1 g/dL (31.6-35.5); Mean Corpuscular Hemoglobin 30.4 pg (28.0-33.3); Mean Corpuscular Volume 94.8 fL (83.0-100.0); Mean Platelet Volume 8.9 fL (9.4-12.4); Monocytes # 0.7 K/mcL (0.0-1.3); Monocytes % 9.1 %; Neutrophils # 5.2 K/mcL (1.6-8.9); Platelet Count 415 K/mcL (140-400); Red Blood Count 3.85 M/mcL (4.19-5.50); Red Cell Distribution Width 13.9 % (11.5-14.5); Segmented Neutrophils % 70.4 %
[2018-07-07 07:20] LABS: BUN/Creatinine Ratio 39 (6-26); Blood Urea Nitrogen 32 mg/dL (8-23); Calcium 9.1 mg/dL (8.6-10.3); Carbon Dioxide 32 mEq/L (23-29); Chloride 97 mEq/L (98-107); Digoxin 1.7 ng/mL (0.8-2.0); Glucose 83 mg/dL (70-105); Osmolality,Calculated 286 (280-300); Potassium 4.3 mEq/L (3.5-5.1); Sodium 135 mEq/L (136-145); eGFR For Non-African Americans > 60 (> 60)
[2018-07-07] MEDS: Lactobacillus 1 EACH CAP.SPRINK PO SCH (08:56)
[2018-07-07] MEDS: *HR* Digoxin 0.25 MG TABLET PO SCH (08:56)
[2018-07-07] MEDS: Furosemide 40 MG TABLET PO SCH (08:56)
[2018-07-07] MEDS: Methyl Salicylate/Menthol 28 GM TUBE TP SCH ×2 (08:58→20:40)
--- NOTE | 2018-07-07 17:34 | Internal Med Progress Note ---
Date of Encounter: 07/07/18 Time of Encounter: 17:25 - Assessment and plan (1) Community acquired pneumonia Current Visit: No Status: Acute Assessment and plan: July 04. Continue IV Rocephin and doxycycline with lactobacillus. July 05. Continue antibiotic and probiotic with lactobacillus until July 07. July 07. Discontinue Rocephin, doxycycline, and lactobacillus. Qualifiers: Laterality: unspecified laterality Qualified Code(s): J18.9 - Pneumonia, unspecified organism (2) Nonischemic cardiomyopathy Current Visit: No Status: Chronic Assessment and plan: July 04. Continue Coreg, Lanoxin, and Lasix. Check labs in a.m. July 05. BN peptide further decreased to 1340. Continue present regimen. July 07. BN peptide further decreased to 891. Continue present treatment (3) Atrial fibrillation Current Visit: No Status: Chronic Assessment and plan: July 04. He was started on Xarelto at time of discharge into swing bed since he appeared to be low fall risk July 05. Continue Xarelto Qualifiers: Atrial fibrillation type: chronic Qualified Code(s): I48.2 - Chronic atrial fibrillation (4) Anemia Current Visit: No Status: Acute Assessment and plan: July 04. Continue ferrous sulfate with ascorbic acid. Await MMA. July 07. MMA elevated at 1.57. He will receive B12 injection start oral B12 supplement. Qualifiers: Anemia type: iron deficiency Iron deficiency anemia type: unspecified iron deficiency Qualified Code(s): D50.9 - Iron deficiency anemia, unspecified (5) Weakness Current Visit: No Status: Chronic Assessment and plan: July 04. Continue PT and OT intervention. July 07. He is progressing satisfactorily in therapy. Anticipate discharge home on 07/10/2018. - Subjective Interval history: July 04. He was hospitalized in acute-care at [facility] June 29- after presenting with dyspnea. CT scan showed bilateral pneumonia. He was given IV Rocephin and doxycycline with lactobacillus. Lanoxin was started for cardiomyopathy and Lasix was continued. Coreg was added on July 02. BN peptide decreased to 1755 on July 03 and dyspnea was significantly improved. He was started on ferrous sulfate with ascorbic acid for evidence of iron deficiency anemia. MMA is pending to assess B12 status. He had therapy consultation with ongoing intervention and made satisfactory progress. It was felt he would benefit from swing bed stay. He has no complaints today and feels well. July 05. He states he has an occasional "gas" feeling in his mid chest area. He has also had occasional pain in his left chest area. He denies significant dyspnea. July 07. He has no new complaints and feels better. - Constitutional Vitals: Temp Pulse Resp BP Pulse Ox 97.4 F L 71 17 102/58 99 07/07/18 07:35 07/07/18 07:35 07/07/18 07:35 07/07/18 07:35 07/07/18 07:35 Exam: He is resting comfortably in bed and appears in no acute distress. His affect is bright and cheerful. I reviewed his medications and lab results. Internal Medicine: Result - Labs CBC & Chem 7: 07/07/18 04:55 07/07/18 04:55 Labs: Short CBC 07/07/18 Range/Units 04:55 WBC 7.4 (4.3-11.1) K/mcL Hgb 11.7 L (12.9-16.9) g/dL Hct 36.5 L (37.5-50.1) % Plt Count 415 H (140-400) K/mcL Neutrophils # 5.2 (1.6-8.9) K/mcL BMP 07/07/18 04:55 Sodium 135 L Potassium 4.3 Chloride 97 L Carbon Dioxide 32 H BUN 32 H Creatinine 0.83 Glucose 83 Calcium 9.1 Consult Discharge Plan - Plan Referrals: NONE,PCP [Primary Care Provider] - 1 week
[2018-07-07] MEDS ORDERED: Cyanocobalamin (B-12) 1,000 MCG/ML VIAL IM ONE (17:36)
[2018-07-07] MEDS: cefTRIAXone 1,000 MG in Water for inj. (sterile) 20 ML 10 ML IVPB SCH (17:56)
[2018-07-07] MEDS: *HR* Rivaroxaban 15 MG TABLET PO SCH (18:16)
[2018-07-07] MEDS: Melatonin 3 MG TABLET PO SCH (20:40)
[2018-07-08] MEDS: Ascorbic Acid 500 MG TABLET PO SCH (06:31)
[2018-07-08] MEDS: Methyl Salicylate/Menthol 28 GM TUBE TP SCH ×2 (09:04→21:25)
[2018-07-08] MEDS: Furosemide 40 MG TABLET PO SCH (09:08)
[2018-07-08] MEDS: *HR* Digoxin 0.25 MG TABLET PO SCH (09:08)
[2018-07-08] MEDS: Cyanocobalamin (B-12) 1,000 MCG TABLET PO SCH (09:08)
[2018-07-08] MEDS: MOM Conc 10 ML UD.LIQ PO SCH (11:49)
[2018-07-08] MEDS: *HR* Rivaroxaban 15 MG TABLET PO SCH (17:48)
[2018-07-08] MEDS: Simethicone 80 MG TAB.CHEW PO PRN (17:57)
[2018-07-08] MEDS: Melatonin 3 MG TABLET PO SCH (21:25)
[2018-07-09] MEDS: Ascorbic Acid 500 MG TABLET PO SCH (05:45)
[2018-07-09] MEDS: Methyl Salicylate/Menthol 28 GM TUBE TP SCH ×2 (10:22→21:20)
[2018-07-09] MEDS: *HR* Digoxin 0.25 MG TABLET PO SCH (10:27)
[2018-07-09] MEDS: Furosemide 40 MG TABLET PO SCH (10:27)
[2018-07-09] MEDS: Cyanocobalamin (B-12) 1,000 MCG TABLET PO SCH (10:27)
--- NOTE | 2018-07-09 17:26 | Internal Med Progress Note ---
Date of Encounter: 07/09/18 Time of Encounter: 17:15 - Assessment and plan (1) Community acquired pneumonia Current Visit: No Status: Acute Assessment and plan: July 04. Continue IV Rocephin and doxycycline with lactobacillus. July 05. Continue antibiotic and probiotic with lactobacillus until July 07. July 07. Discontinue Rocephin, doxycycline, and lactobacillus. Qualifiers: Laterality: unspecified laterality Qualified Code(s): J18.9 - Pneumonia, unspecified organism (2) Nonischemic cardiomyopathy Current Visit: No Status: Chronic Assessment and plan: July 04. Continue Coreg, Lanoxin, and Lasix. Check labs in a.m. July 05. BN peptide further decreased to 1340. Continue present regimen. July 07. BN peptide further decreased to 891. Continue present treatment (3) Atrial fibrillation Current Visit: No Status: Chronic Assessment and plan: July 04. He was started on Xarelto at time of discharge into swing bed since he appeared to be low fall risk July 05. Continue Xarelto Qualifiers: Atrial fibrillation type: chronic Qualified Code(s): I48.2 - Chronic atrial fibrillation (4) Anemia Current Visit: No Status: Acute Assessment and plan: July 04. Continue ferrous sulfate with ascorbic acid. Await MMA. July 07. MMA elevated at 1.57. He will receive B12 injection start oral B12 supplement. Qualifiers: Anemia type: iron deficiency Iron deficiency anemia type: unspecified iron deficiency Qualified Code(s): D50.9 - Iron deficiency anemia, unspecified (5) Weakness Current Visit: No Status: Chronic Assessment and plan: July 04. Continue PT and OT intervention. July 07. He is progressing satisfactorily in therapy. Anticipate discharge home on 07/10/2018. - Subjective Interval history: July 04. He was hospitalized in acute-care at [facility] June 29- after presenting with dyspnea. CT scan showed bilateral pneumonia. He was given IV Rocephin and doxycycline with lactobacillus. Lanoxin was started for cardiomyopathy and Lasix was continued. Coreg was added on July 02. BN peptide decreased to 1755 on July 03 and dyspnea was significantly improved. He was started on ferrous sulfate with ascorbic acid for evidence of iron deficiency anemia. MMA is pending to assess B12 status. He had therapy consultation with ongoing intervention and made satisfactory progress. It was felt he would benefit from swing bed stay. He has no complaints today and feels well. July 05. He states he has an occasional "gas" feeling in his mid chest area. He has also had occasional pain in his left chest area. He denies significant dyspnea. July 07. He has no new complaints and feels better. July 09. He has no new complaints. - Constitutional Vitals: Temp Pulse Resp BP Pulse Ox 97.5 F L 70 16 96/54 97 07/09/18 06:33 07/09/18 06:33 07/09/18 06:33 07/09/18 06:33 07/09/18 06:33 Exam: He is sitting in a chair at bedside resting comfortably. His affect is bright and cheerful. He does not appear dyspneic. I reviewed his medications and lab results. Internal Medicine: Result - Labs CBC & Chem 7: 07/07/18 04:55 07/07/18 04:55 Consult Discharge Plan - Plan Referrals: NONE,PCP [Primary Care Provider] - 1 week
[2018-07-09] MEDS: *HR* Rivaroxaban 15 MG TABLET PO SCH (17:45)
[2018-07-09] MEDS: Melatonin 3 MG TABLET PO SCH (21:20)
[2018-07-10] MEDS: Ascorbic Acid 500 MG TABLET PO SCH (06:11)
[2018-07-10 06:39] LABS: Basophils % 0.7 %; Eosinophils # 0.1 K/mcL (0.0-0.6); Eosinophils % 2.2 %; Hematocrit 35.7 % (37.5-50.1); Hemoglobin 11.2 g/dL (12.9-16.9); Immature Granulocytes % 0.3 % (0-4); Lymphocytes # 1.2 K/mcL (0.6-4.6); Lymphocytes % 20.6 %; Mean Corpuscular HGB Conc 31.4 g/dL (31.6-35.5); Mean Corpuscular Hemoglobin 30.1 pg (28.0-33.3); Mean Platelet Volume 8.9 fL (9.4-12.4); Monocytes # 0.8 K/mcL (0.0-1.3); Monocytes % 12.8 %; Neutrophils # 3.7 K/mcL (1.6-8.9); Platelet Count 350 K/mcL (140-400); Red Blood Count 3.72 M/mcL (4.19-5.50); Red Cell Distribution Width 13.9 % (11.5-14.5); Segmented Neutrophils % 63.4 %
[2018-07-10 06:51] VITALS: BP 104/68
[2018-07-10 07:01] LABS: BUN/Creatinine Ratio 36 (6-26); Blood Urea Nitrogen 32 mg/dL (8-23); Calcium 9.1 mg/dL (8.6-10.3); Carbon Dioxide 33 mEq/L (23-29); Chloride 98 mEq/L (98-107); Digoxin 1.8 ng/mL (0.8-2.0); Glucose 89 mg/dL (70-105); Osmolality,Calculated 290 (280-300); Potassium 4.1 mEq/L (3.5-5.1); Sodium 137 mEq/L (136-145); eGFR For Non-African Americans > 60 (> 60)
[2018-07-10] MEDS: *HR* Digoxin 0.25 MG TABLET PO SCH (09:28)
[2018-07-10] MEDS: Cyanocobalamin (B-12) 1,000 MCG TABLET PO SCH (09:28)
[2018-07-10] MEDS: Furosemide 40 MG TABLET PO SCH (09:28)
[2018-07-10] MEDS: Methyl Salicylate/Menthol 28 GM TUBE TP SCH (09:31)
--- NOTE | 2018-07-10 09:48 | Discharge Summary ---
Date of Encounter: 07/10/18 Time of Encounter: 09:35 - Discharge Diagnosis (1) Community acquired pneumonia Priority: Primary Status: Resolved Qualifiers: Laterality: unspecified laterality Qualified Code(s): J18.9 - Pneumonia, unspecified organism (2) Nonischemic cardiomyopathy Priority: Secondary Status: Chronic (3) Atrial fibrillation Priority: Secondary Status: Chronic Qualifiers: Atrial fibrillation type: chronic Qualified Code(s): I48.2 - Chronic atrial fibrillation (4) Anemia Priority: Secondary Status: Acute Qualifiers: Anemia type: iron deficiency Iron deficiency anemia type: unspecified iron deficiency Qualified Code(s): D50.9 - Iron deficiency anemia, unspecified (5) Weakness Priority: Secondary Status: Chronic Hospital course: Mr. Bennett is a 82 year old male who was hospitalized in acute-care at [facility] June 29- after presenting with dyspnea. CT scan showed bilateral pneumonia. He was given IV Rocephin and doxycycline with lactobacillus. Lanoxin was started for cardiomyopathy and Lasix was continued. Coreg was added on July 02. BN peptide decreased to 1755 on July 03 and dyspnea was significantly improved. Amadou torres was started on ferrous sulfate with ascorbic acid for evidence of iron deficiency anemia. He had therapy consultation with ongoing intervention and made satisfactory progress. It was felt he would benefit from swing bed stay. Antibiotics were continued through July 07. He had no evidence of recurrent infection following discontinuation. BN peptide decreased further to 891 on 07/07/2018. It had risen slightly to 1110 on July 10 day of discharge. Lanoxin level was therapeutic and stable at 1.8 on July 10. Coreg was started at low dose and will be continued at discharge. MMA returned elevated at 1.57. He was given a B12 injection will continue oral B12 supplement. Ferrous sulfate with ascorbic acid will also be continued. Hemoglobin was stable at 11.2 on day of discharge. He made satisfactory progress in therapy and was felt stable for discharge home on 07/10/2018. He will follow with his PCP Dr. Sutherland within 1 week. - Time Spent with Patient Total time spent providing and/or coordinating discharge services: - Discharge Medications Prescriptions: New Carvedilol 3.125 mg PO BID #60 tab Cyanocobalamin (B-12) [Vitamin B12] 1,000 mcg PO DAILY #30 tablet Continue Acetaminophen [Tylenol] 650 mg PO Q6HR PRN tablet PRN Reason: Fever or pain Omeprazole [PriLOSEC] 40 mg PO DAILY@0630 capsule. Melatonin 3 mg PO HS tablet Sertraline [Zoloft] 100 mg PO DAILY Furosemide [Lasix] 40 mg PO DAILY Midodrine HCl 5 mg PO BID Acetaminophen [Tylenol] 650 mg PO Q6HR PRN tablet PRN Reason: Mild Pain/Fever Carvedilol [Coreg] 3.125 mg PO BIDWM tablet Methyl Salicylate/Menthol [Bengay] 1 appl TP BID tube MOM Conc [MILK OF MAGNESIA conc] 10 ml PO Q48H ud.liq Zolpidem [Ambien] 5 mg PO HS PRN tablet PRN Reason: Insomnia Ascorbic Acid [Vitamin C] 500 mg PO 0630 #30 tablet Digoxin [Lanoxin] 0.25 mg PO DAILY #30 tablet Ferrous Sulfate 325 mg PO 0630 #30 tablet Potassium Chloride 10 meq PO DAILY #30 tab.er.prt Rivaroxaban [Xarelto] 15 mg PO 1700 #30 tablet Discontinued Doxycycline 100 mg IVPB Q12HR vial cefTRIAXone [Rocephin] 1,000 mg IVP Q24H vial Lactobacillus [Culturelle] 1 each PO BID cap.sprink Home Medications: Sertraline [Zoloft] 100 mg PO DAILY 02/04/16 [History] Acetaminophen [Tylenol] 650 mg PO Q6HR PRN tablet 03/05/18 [Rx] Melatonin 3 mg PO HS tablet 03/05/18 [Rx] Omeprazole [PriLOSEC] 40 mg PO DAILY@0630 capsule. 03/05/18 [Rx] Furosemide [Lasix] 40 mg PO DAILY 06/29/18 [History] Midodrine HCl 5 mg PO BID 06/29/18 [History] Acetaminophen [Tylenol] 650 mg PO Q6HR PRN tablet 07/03/18 [Rx] Carvedilol [Coreg] 3.125 mg PO BIDWM tablet 07/03/18 [Rx] MOM Conc [MILK OF MAGNESIA conc] 10 ml PO Q48H ud.liq 07/03/18 [Rx] Methyl Salicylate/Menthol [Bengay] 1 appl TP BID tube 07/03/18 [Rx] Zolpidem [Ambien] 5 mg PO HS PRN tablet 07/03/18 [Rx] Ascorbic Acid [Vitamin C] 500 mg PO 0630 #30 tablet 07/10/18 [Rx] Carvedilol 3.125 mg PO BID #60 tab 07/10/18 [Rx] Cyanocobalamin (B-12) [Vitamin B12] 1,000 mcg PO DAILY #30 tablet 07/10/18 [Rx] Digoxin [Lanoxin] 0.25 mg PO DAILY #30 tablet 07/10/18 [Rx] Ferrous Sulfate 325 mg PO 0630 #30 tablet 07/10/18 [Rx] Potassium Chloride 10 meq PO DAILY #30 tab.er.prt 07/10/18 [Rx] Rivaroxaban [Xarelto] 15 mg PO 1700 #30 tablet 07/10/18 [Rx] Allergies/Adverse Reactions: Allergy/AdvReac Type Severity Reaction Status Date / Time Penicillins [PCN] Allergy Hives Verified 06/29/18 15:13 Date of admission: 07/03/18 15:17 Primary care physician: Kerwin Sutherland D.O. Consults: 07/03/18 15:46 PT [Consult to Physical Therapy] [CONS] Routine Comment: Evaluate, develop and implement POC Reason for Consult: weakness Does patient have active BEDREST order?: No Is patient medically & hemodynamically stable?: Yes Patient assessed for mobility or mobilized this visit?: Yes 07/03/18 15:47 OT [Consult to Occupational Therapy] [CONS] Routine Comment: Evaluate, develop and implement POC Reason for Consult: weakness Does patient have active BEDREST order?: No Is patient medically & hemodynamically stable?: Yes Patient assessed for mobility or mobilized this visit?: Yes 07/03/18 15:51 Consult to Nutrition [CONS] Routine Comment: Consulting Provider: NUTRITION Reason for Dietary Consult: PO Supplementation - Constitutional Vitals: Temp Pulse Resp BP Pulse Ox 98.3 F 77 16 104/68 97 07/10/18 06:49 07/10/18 06:49 07/10/18 06:49 07/10/18 06:49 07/10/18 06:49 - Patient Status Disposition: Home, Self-Care - Discharge Instructions Follow Up With: Kerwin Sutherland DO [Non-Partnered Physician] - 1 week - Diet and Activity Activity: as per physical therapy, resume usual activities as tolerated Diet: advance to your usual diet
--- NOTE | 2018-07-10 10:06 | Physician Discharge Referral ---
Home Health/Hosp Referral Info Transfer to: Home Health Attending Provider: Darron Provider in Charge Post Discharge: PCP (Koko) - Diagnosis (1) Community acquired pneumonia Priority: Primary Status: Resolved (2) Nonischemic cardiomyopathy Priority: Secondary Status: Chronic (3) Atrial fibrillation Priority: Secondary Status: Chronic (4) Anemia Priority: Secondary Status: Acute (5) Weakness Priority: Secondary Status: Chronic - Respiratory Orders Smoking Cessation: Smoking cessation has been advised. For more information, call the [place] Tobacco Quit Line at 8-930-CPWO-NOW. - Diet/Nutrition Diet/Nutrition Orders: Regular - Activity Activity Orders: Ambulate - Services Needed Following services are medically necessary services: Nursing, Home Health Aide, Physical Therapy, Occupational Therapy - Transfer Medications Prescriptions: Ascorbic Acid [Vitamin C] 500 mg PO 0630 #30 tablet Carvedilol 3.125 mg PO BID #60 tab Cyanocobalamin (B-12) [Vitamin B12] 1,000 mcg PO DAILY #30 tablet Digoxin [Lanoxin] 0.25 mg PO DAILY #30 tablet Ferrous Sulfate 325 mg PO 0630 #30 tablet Potassium Chloride 10 meq PO DAILY #30 tab.er.prt Home Medications: Sertraline [Zoloft] 100 mg PO DAILY 02/04/16 [History] Acetaminophen [Tylenol] 650 mg PO Q6HR PRN tablet 03/05/18 [Rx] Melatonin 3 mg PO HS tablet 03/05/18 [Rx] Omeprazole [PriLOSEC] 40 mg PO DAILY@0630 capsule. 03/05/18 [Rx] Furosemide [Lasix] 40 mg PO DAILY 06/29/18 [History] Midodrine HCl 5 mg PO BID 06/29/18 [History] Acetaminophen [Tylenol] 650 mg PO Q6HR PRN tablet 07/03/18 [Rx] Carvedilol [Coreg] 3.125 mg PO BIDWM tablet 07/03/18 [Rx] MOM Conc [MILK OF MAGNESIA conc] 10 ml PO Q48H ud.liq 07/03/18 [Rx] Methyl Salicylate/Menthol [Bengay] 1 appl TP BID tube 07/03/18 [Rx] Zolpidem [Ambien] 5 mg PO HS PRN tablet 07/03/18 [Rx] Ascorbic Acid [Vitamin C] 500 mg PO 0630 #30 tablet 07/10/18 [Rx] Carvedilol 3.125 mg PO BID #60 tab 07/10/18 [Rx] Cyanocobalamin (B-12) [Vitamin B12] 1,000 mcg PO DAILY #30 tablet 07/10/18 [Rx] Digoxin [Lanoxin] 0.25 mg PO DAILY #30 tablet 07/10/18 [Rx] Ferrous Sulfate 325 mg PO 0630 #30 tablet 07/10/18 [Rx] Potassium Chloride 10 meq PO DAILY #30 tab.er.prt 07/10/18 [Rx] Rivaroxaban [Xarelto] 15 mg PO 1700 #30 tablet 07/10/18 [Rx] Allergies/Adverse Reactions: Allergy/AdvReac Type Severity Reaction Status Date / Time Penicillins [PCN] Allergy Hives Verified 06/29/18 15:13 Certification: Further, I certify that my clinical findings support that this patient is homebound (i.e. absences from home require considerable and taxing effort and are for medical reasons or evangelical services or infrequently or short duration when for other reasons) because: Homebound Reason: Leaving home requires considerable and taxing effort due to condition (Nonischemic cardiomyopathy) Attestation: My signature below is to certify that this patient is under my care and that I, or nurse practitioner, or a physician's recovery assistant working with me, has a [id number] encounter with this patient.
== END 2018-07-10 11:45 | disposition home or self-care (01) | DRG 194 ==
LOC: INPPIK 15:17
PROVIDERS: ADMIT Internal Medicine; ATTEND Internal Medicine

== ENCOUNTER 2020-06-17 22:00 | Inpatient (IN) ==
[2020-06-17 23:19] LABS: Basophils % 0.3 %; Eosinophils # 0.1 K/mcL (0.0-0.6); Eosinophils % 1.2 %; Hematocrit 28.4 % (37.5-50.1); Hemoglobin 9.1 g/dL (12.9-16.9); Immature Granulocytes % 0.5 % (0-4); Lymphocytes # 0.6 K/mcL (0.6-4.6); Lymphocytes % 6.3 %; Mean Corpuscular Hemoglobin 31.3 pg (28.0-33.3); Mean Corpuscular Volume 97.6 fL (83.0-100.0); Mean Platelet Volume 8.3 fL (9.4-12.4); Monocytes # 0.6 K/mcL (0.0-1.3); Monocytes % 5.9 %; Neutrophils # 8.4 K/mcL (1.6-8.9); Platelet Count 195 K/mcL (140-400); Red Blood Count 2.91 M/mcL (4.19-5.50); Segmented Neutrophils % 85.8 %; White Blood Count 9.8 K/mcL (4.3-11.1)
[2020-06-17 23:38] LABS: BUN/Creatinine Ratio 19 (6-26); Blood Urea Nitrogen 23 mg/dL (8-23); Calcium 9.1 mg/dL (8.6-10.3); Carbon Dioxide 27 mEq/L (23-29); Chloride 94 mEq/L (98-107); Glucose 128 mg/dL (70-105); Osmolality,Calculated 275 (280-300); Sodium 130 mEq/L (136-145); eGFR For African Americans > 60 (> 60); eGFR For Non-African Americans 56 (> 60)
[2020-06-17 23:39] LABS: Troponin I < 0.03 ng/mL (< 0.04)
[2020-06-18] MEDS ORDERED: Azithromycin 500 MG in 0.9 % Sodium Chloride 250 ML IVPB ONE (00:01)
[2020-06-18] MEDS ORDERED: 0.9 % Sodium Chloride 1,000 ML IVC SCH (02:19)
[2020-06-18] MEDS ORDERED: Naloxone 0.4 MG/ML INJ IVP PRN (02:19)
[2020-06-18] MEDS: Ipratropium/Albuterol Neb 3 ML IH SCH ×5 (04:31→21:20)
[2020-06-18 07:42] LABS: Basophils % 0.2 %; Eosinophils # 0.1 K/mcL (0.0-0.6); Eosinophils % 0.9 %; Hematocrit 27.4 % (37.5-50.1); Hemoglobin 8.8 g/dL (12.9-16.9); Immature Granulocytes % 0.5 % (0-4); Lymphocytes # 0.6 K/mcL (0.6-4.6); Mean Corpuscular HGB Conc 32.1 g/dL (31.6-35.5); Mean Corpuscular Hemoglobin 31.3 pg (28.0-33.3); Mean Corpuscular Volume 97.5 fL (83.0-100.0); Mean Platelet Volume 8.4 fL (9.4-12.4); Monocytes # 0.6 K/mcL (0.0-1.3); Neutrophils # 7.5 K/mcL (1.6-8.9); Platelet Count 178 K/mcL (140-400); Red Blood Count 2.81 M/mcL (4.19-5.50); Segmented Neutrophils % 84.4 %; White Blood Count 8.8 K/mcL (4.3-11.1)
[2020-06-18 07:53] LABS: BUN/Creatinine Ratio 16 (6-26); Blood Urea Nitrogen 19 mg/dL (8-23); Calcium 8.7 mg/dL (8.6-10.3); Carbon Dioxide 27 mEq/L (23-29); Chloride 96 mEq/L (98-107); Glucose 104 mg/dL (70-105); Osmolality,Calculated 275 (280-300); Potassium 3.8 mEq/L (3.5-5.1); Sodium 131 mEq/L (136-145); eGFR For African Americans > 60 (> 60); eGFR For Non-African Americans 59 (> 60)
[2020-06-18] MEDS: *HR* Rivaroxaban 15 MG TABLET PO SCH (08:23)
[2020-06-18] MEDS: *HR* Amiodarone 200 MG TABLET PO SCH (08:23)
[2020-06-18] MEDS: Cyanocobalamin (B-12) 1,000 MCG TABLET PO SCH (08:23)
[2020-06-18] MEDS ORDERED: MIDODRINE HCL 2.5 MG PO SCH (09:00)
[2020-06-18] MEDS: Melatonin 3 MG TABLET PO SCH (20:08)
[2020-06-18] MEDS: Simethicone 80 MG TAB.CHEW PO SCH (20:08)
[2020-06-18] MEDS: cefTRIAXone 1,000 MG in Water for inj. (sterile) 10 ML IVP SCH (23:22)
[2020-06-18] MEDS: Azithromycin 500 MG in 0.9 % Sodium Chloride 250 ML IVPB SCH (23:27)
[2020-06-19] MEDS: Ipratropium/Albuterol Neb 3 ML IH SCH ×6 (00:57→20:43)
[2020-06-19 07:43] LABS: Basophils % 0.3 %; Eosinophils # 0.1 K/mcL (0.0-0.6); Eosinophils % 0.8 %; Hematocrit 25.7 % (37.5-50.1); Hemoglobin 8.1 g/dL (12.9-16.9); Immature Granulocytes % 0.3 % (0-4); Lymphocytes # 0.5 K/mcL (0.6-4.6); Lymphocytes % 5.4 %; Mean Corpuscular HGB Conc 31.5 g/dL (31.6-35.5); Mean Corpuscular Hemoglobin 31.4 pg (28.0-33.3); Mean Corpuscular Volume 99.6 fL (83.0-100.0); Mean Platelet Volume 8.8 fL (9.4-12.4); Monocytes # 0.6 K/mcL (0.0-1.3); Monocytes % 6.5 %; Neutrophils # 7.9 K/mcL (1.6-8.9); Platelet Count 195 K/mcL (140-400); Red Blood Count 2.58 M/mcL (4.19-5.50); Red Cell Distribution Width 14.3 % (11.5-14.5); Segmented Neutrophils % 86.7 %; White Blood Count 9.1 K/mcL (4.3-11.1)
[2020-06-19 08:14] LABS: BUN/Creatinine Ratio 15 (6-26); Blood Urea Nitrogen 17 mg/dL (8-23); Calcium 8.5 mg/dL (8.6-10.3); Carbon Dioxide 27 mEq/L (23-29); Chloride 97 mEq/L (98-107); Glucose 113 mg/dL (70-105); Osmolality,Calculated 274 (280-300); Potassium 4.2 mEq/L (3.5-5.1); Sodium 131 mEq/L (136-145); eGFR For African Americans > 60 (> 60); eGFR For Non-African Americans > 60 (> 60)
[2020-06-19] MEDS: Cyanocobalamin (B-12) 1,000 MCG TABLET PO SCH (08:59)
[2020-06-19] MEDS: *HR* Rivaroxaban 15 MG TABLET PO SCH (08:59)
[2020-06-19] MEDS: *HR* Amiodarone 200 MG TABLET PO SCH (08:59)
[2020-06-19] MEDS ORDERED: Furosemide 40 MG TABLET PO SCH (09:00)
[2020-06-19] MEDS: 0.9 % Sodium Chloride 1,000 ML IVC SCH ×2 (09:04→21:58)
[2020-06-19] MEDS ORDERED: *HR* Metoprolol 5 MG/5 ML VIAL IVP PRN (18:09)
[2020-06-19] MEDS: Simethicone 80 MG TAB.CHEW PO SCH (20:26)
[2020-06-19] MEDS: Melatonin 3 MG TABLET PO SCH (20:26)
[2020-06-19] MEDS: Acetaminophen 325 MG TABLET PO PRN (22:34)
[2020-06-19] MEDS: Azithromycin 500 MG in 0.9 % Sodium Chloride 250 ML IVPB SCH (23:49)
[2020-06-19] MEDS: cefTRIAXone 1,000 MG in Water for inj. (sterile) 10 ML IVP SCH (23:49)
[2020-06-20] MEDS: Ipratropium/Albuterol Neb 3 ML IH SCH ×4 (00:28→11:17)
[2020-06-20 06:54] VITALS: BP 108/56
[2020-06-20 08:27] LABS: Basophils % 0.4 %; Eosinophils # 0.2 K/mcL (0.0-0.6); Eosinophils % 2.7 %; Hematocrit 26.3 % (37.5-50.1); Hemoglobin 8.2 g/dL (12.9-16.9); Immature Granulocytes % 0.6 % (0-4); Lymphocytes # 0.6 K/mcL (0.6-4.6); Lymphocytes % 6.8 %; Mean Corpuscular HGB Conc 31.2 g/dL (31.6-35.5); Mean Corpuscular Hemoglobin 31.4 pg (28.0-33.3); Mean Corpuscular Volume 100.8 fL (83.0-100.0); Mean Platelet Volume 8.6 fL (9.4-12.4); Monocytes # 0.5 K/mcL (0.0-1.3); Monocytes % 5.9 %; Neutrophils # 6.9 K/mcL (1.6-8.9); Platelet Count 215 K/mcL (140-400); Red Blood Count 2.61 M/mcL (4.19-5.50); Red Cell Distribution Width 14.3 % (11.5-14.5); Segmented Neutrophils % 83.6 %; White Blood Count 8.2 K/mcL (4.3-11.1)
[2020-06-20 08:50] LABS: BUN/Creatinine Ratio 14 (6-26); Blood Urea Nitrogen 15 mg/dL (8-23); Carbon Dioxide 28 mEq/L (23-29); Chloride 101 mEq/L (98-107); Glucose 100 mg/dL (70-105); Osmolality,Calculated 281 (280-300); Potassium 4.1 mEq/L (3.5-5.1); Sodium 135 mEq/L (136-145); eGFR For African Americans > 60 (> 60); eGFR For Non-African Americans > 60 (> 60)
[2020-06-20 08:59] LABS: Calcium 8.7 mg/dL (8.6-10.3)
[2020-06-20] MEDS: *HR* Amiodarone 200 MG TABLET PO SCH (09:17)
[2020-06-20] MEDS: Acetaminophen 325 MG TABLET PO PRN (09:18)
[2020-06-20] MEDS: Cyanocobalamin (B-12) 1,000 MCG TABLET PO SCH (09:18)
[2020-06-20] MEDS: *HR* Rivaroxaban 15 MG TABLET PO SCH (09:19)
[2020-06-20] MEDS: 0.9 % Sodium Chloride 1,000 ML IVC SCH (13:34)
[2020-06-20] MEDS ORDERED: Ipratropium/Albuterol Neb 3 ML IH SCH (16:00)
[2020-06-21] MEDS ORDERED: Furosemide 20 MG TABLET PO SCH (09:00)
== END 2020-06-20 15:08 | disposition home health service (06) | DRG 193 ==
LOC: INPPIK 22:00 → EMEROOPIK 22:00 → INPPIK 06-18 02:35
PROVIDERS: ADMIT Family Medicine; ATTEND Family Medicine

== ENCOUNTER 2020-06-22 15:21 | Inpatient (IN) ==
[2020-06-22] MEDS ORDERED: Ipratropium/Albuterol Neb 3 ML IH ONE (15:32)
[2020-06-22 15:54] LABS: Basophils % 0.3 %; Eosinophils # 0.1 K/mcL (0.0-0.6); Eosinophils % 0.9 %; Hematocrit 28.6 % (37.5-50.1); Hemoglobin 8.9 g/dL (12.9-16.9); Immature Granulocytes % 0.4 % (0-4); Lymphocytes # 0.5 K/mcL (0.6-4.6); Lymphocytes % 4.6 %; Mean Corpuscular HGB Conc 31.1 g/dL (31.6-35.5); Mean Corpuscular Hemoglobin 30.9 pg (28.0-33.3); Mean Corpuscular Volume 99.3 fL (83.0-100.0); Mean Platelet Volume 8.6 fL (9.4-12.4); Monocytes # 0.5 K/mcL (0.0-1.3); Monocytes % 4.6 %; Neutrophils # 10.4 K/mcL (1.6-8.9); Platelet Count 275 K/mcL (140-400); Red Blood Count 2.88 M/mcL (4.19-5.50); Red Cell Distribution Width 14.4 % (11.5-14.5); Segmented Neutrophils % 89.2 %; White Blood Count 11.7 K/mcL (4.3-11.1)
[2020-06-22] MEDS ORDERED: cefTRIAXone 2,000 MG in 0.9 % Sodium Chloride Mini Bag 100 ML IVPB ONE (15:58)
[2020-06-22] MEDS ORDERED: 0.9 % Sodium Chloride 1,000 ML IVC SCH (16:00)
[2020-06-22 16:12] LABS: BUN/Creatinine Ratio 19 (6-26); Blood Urea Nitrogen 20 mg/dL (8-23); Calcium 9.2 mg/dL (8.6-10.3); Carbon Dioxide 27 mEq/L (23-29); Chloride 96 mEq/L (98-107); Glucose 129 mg/dL (70-105); Osmolality,Calculated 278 (280-300); Potassium 4.1 mEq/L (3.5-5.1); Sodium 132 mEq/L (136-145); eGFR For African Americans > 60 (> 60); eGFR For Non-African Americans > 60 (> 60)
[2020-06-22 16:13] LABS: Troponin I < 0.03 ng/mL (< 0.04)
[2020-06-22] MEDS ORDERED: Naloxone 0.4 MG/ML INJ IVP PRN (16:19)
[2020-06-22] MEDS ORDERED: Ondansetron ODT 4 MG TAB.RAPDIS SL PRN (16:19)
[2020-06-22] MEDS ORDERED: Acetaminophen 325 MG TABLET PO PRN (16:19)
[2020-06-22] MEDS: Psyllium 1 PACKET POWD.PACK PO SCH (20:09)
[2020-06-22] MEDS: Simethicone 80 MG TAB.CHEW PO SCH (20:09)
[2020-06-22] MEDS: Melatonin 3 MG TABLET PO SCH (20:09)
[2020-06-22] MEDS: Ipratropium/Albuterol Neb 3 ML IH SCH (20:43)
[2020-06-22] MEDS: Budesonide/Formoterol 80/4.5 1 PUFF INH IH SCH (20:43)
[2020-06-23] MEDS: methylPREDNISolone 125 MG/2 ML VIAL IVP SCH ×3 (00:03→16:13)
[2020-06-23] MEDS: Ipratropium/Albuterol Neb 3 ML IH SCH ×4 (03:59→22:06)
[2020-06-23 07:41] LABS: Hematocrit 24.7 % (37.5-50.1); Hemoglobin 7.7 g/dL (12.9-16.9); Mean Corpuscular HGB Conc 31.2 g/dL (31.6-35.5); Mean Corpuscular Hemoglobin 30.8 pg (28.0-33.3); Mean Corpuscular Volume 98.8 fL (83.0-100.0); Mean Platelet Volume 9.4 fL (9.4-12.4); Platelet Count 249 K/mcL (140-400); Red Cell Distribution Width 14.6 % (11.5-14.5); White Blood Count 9.6 K/mcL (4.3-11.1)
[2020-06-23 08:09] LABS: BUN/Creatinine Ratio 18 (6-26); Blood Urea Nitrogen 19 mg/dL (8-23); Calcium 8.8 mg/dL (8.6-10.3); Carbon Dioxide 25 mEq/L (23-29); Chloride 96 mEq/L (98-107); Glucose 143 mg/dL (70-105); Osmolality,Calculated 277 (280-300); Potassium 4.4 mEq/L (3.5-5.1); Sodium 131 mEq/L (136-145); eGFR For African Americans > 60 (> 60); eGFR For Non-African Americans > 60 (> 60)
[2020-06-23] MEDS ORDERED: Furosemide 40 MG TABLET PO SCH (09:00)
[2020-06-23] MEDS: Budesonide/Formoterol 80/4.5 1 PUFF INH IH SCH ×2 (09:22→22:10)
[2020-06-23] MEDS: Cyanocobalamin (B-12) 1,000 MCG TABLET PO SCH (09:33)
[2020-06-23] MEDS: *HR* Rivaroxaban 15 MG TABLET PO SCH (09:34)
[2020-06-23] MEDS: Psyllium 1 PACKET POWD.PACK PO SCH ×2 (09:35→21:45)
[2020-06-23] MEDS: *HR* Amiodarone 200 MG TABLET PO SCH (09:39)
[2020-06-23] MEDS: Furosemide 20 MG TABLET PO SCH (09:42)
[2020-06-23] MEDS ORDERED: *HR* Metoprolol 5 MG/5 ML VIAL IVP ONE ×2 (16:46→17:21)
[2020-06-23] MEDS: Simethicone 80 MG TAB.CHEW PO SCH (21:45)
[2020-06-23] MEDS: Melatonin 3 MG TABLET PO SCH (21:45)
[2020-06-24] MEDS: Ipratropium/Albuterol Neb 3 ML IH SCH (06:16)
[2020-06-24 07:29] LABS: Hematocrit 24.9 % (37.5-50.1); Hemoglobin 7.9 g/dL (12.9-16.9); Mean Corpuscular HGB Conc 31.7 g/dL (31.6-35.5); Mean Corpuscular Hemoglobin 30.7 pg (28.0-33.3); Mean Corpuscular Volume 96.9 fL (83.0-100.0); Mean Platelet Volume 9.7 fL (9.4-12.4); Platelet Count 335 K/mcL (140-400); Red Blood Count 2.57 M/mcL (4.19-5.50); Red Cell Distribution Width 14.5 % (11.5-14.5); White Blood Count 14.4 K/mcL (4.3-11.1)
[2020-06-24 07:49] LABS: BUN/Creatinine Ratio 25 (6-26); Blood Urea Nitrogen 25 mg/dL (8-23); Carbon Dioxide 24 mEq/L (23-29); Chloride 96 mEq/L (98-107); Glucose 191 mg/dL (70-105); Magnesium 2.1 mg/dL (1.6-2.6); Osmolality,Calculated 280 (280-300); Potassium 4.2 mEq/L (3.5-5.1); Sodium 130 mEq/L (136-145); eGFR For African Americans > 60 (> 60); eGFR For Non-African Americans > 60 (> 60)
[2020-06-24] MEDS: *HR* Amiodarone 200 MG TABLET PO SCH ×2 (08:13→14:55)
[2020-06-24] MEDS: Furosemide 20 MG TABLET PO SCH (08:13)
[2020-06-24] MEDS: *HR* Rivaroxaban 15 MG TABLET PO SCH (08:15)
[2020-06-24] MEDS: Psyllium 1 PACKET POWD.PACK PO SCH ×2 (08:15→21:20)
[2020-06-24] MEDS: Cyanocobalamin (B-12) 1,000 MCG TABLET PO SCH (08:15)
[2020-06-24] MEDS ORDERED: Ipratropium/Albuterol Neb 3 ML IH PRN (08:47)
[2020-06-24] MEDS: Budesonide/Formoterol 80/4.5 1 PUFF INH IH SCH ×2 (09:05→22:10)
[2020-06-24] MEDS: Sennosides/Docusate Sodium TABLET PO PRN (15:45)
[2020-06-24] MEDS: Melatonin 3 MG TABLET PO SCH (21:20)
[2020-06-24] MEDS: Simethicone 80 MG TAB.CHEW PO SCH (21:20)
[2020-06-25 08:04] LABS: Hematocrit 25.8 % (37.5-50.1); Hemoglobin 8.3 g/dL (12.9-16.9); Mean Corpuscular HGB Conc 32.2 g/dL (31.6-35.5); Mean Corpuscular Hemoglobin 31.2 pg (28.0-33.3); Mean Platelet Volume 9.2 fL (9.4-12.4); Platelet Count 394 K/mcL (140-400); Red Blood Count 2.66 M/mcL (4.19-5.50); Red Cell Distribution Width 14.6 % (11.5-14.5); White Blood Count 14.4 K/mcL (4.3-11.1)
[2020-06-25] MEDS: Psyllium 1 PACKET POWD.PACK PO SCH ×2 (08:49→20:03)
[2020-06-25] MEDS: Furosemide 20 MG TABLET PO SCH (08:51)
[2020-06-25] MEDS: Cyanocobalamin (B-12) 1,000 MCG TABLET PO SCH (08:51)
[2020-06-25] MEDS: *HR* Amiodarone 200 MG TABLET PO SCH (08:51)
[2020-06-25] MEDS: *HR* Rivaroxaban 15 MG TABLET PO SCH (08:52)
[2020-06-25 08:57] LABS: BUN/Creatinine Ratio 24 (6-26); Blood Urea Nitrogen 29 mg/dL (8-23); Calcium 9.1 mg/dL (8.6-10.3); Carbon Dioxide 26 mEq/L (23-29); Chloride 96 mEq/L (98-107); Glucose 103 mg/dL (70-105); Osmolality,Calculated 278 (280-300); Potassium 4.4 mEq/L (3.5-5.1); Sodium 131 mEq/L (136-145); eGFR For African Americans > 60 (> 60); eGFR For Non-African Americans 57 (> 60)
[2020-06-25] MEDS: Budesonide/Formoterol 80/4.5 1 PUFF INH IH SCH ×2 (10:53→21:30)
[2020-06-25] MEDS: Melatonin 3 MG TABLET PO SCH (20:03)
[2020-06-25] MEDS: Simethicone 80 MG TAB.CHEW PO SCH (20:03)
[2020-06-26] MEDS: Cyanocobalamin (B-12) 1,000 MCG TABLET PO SCH (08:52)
[2020-06-26] MEDS: Sennosides/Docusate Sodium TABLET PO PRN (08:52)
[2020-06-26] MEDS: Psyllium 1 PACKET POWD.PACK PO SCH (08:52)
[2020-06-26] MEDS: Furosemide 20 MG TABLET PO SCH (08:53)
[2020-06-26] MEDS: *HR* Amiodarone 200 MG TABLET PO SCH (08:53)
[2020-06-26] MEDS: *HR* Rivaroxaban 15 MG TABLET PO SCH (08:53)
[2020-06-26] MEDS: Budesonide/Formoterol 80/4.5 1 PUFF INH IH SCH (10:25)
[2020-06-26 12:44] VITALS: BP 101/57
== END 2020-06-26 15:57 | disposition other institution (70) | DRG 193 ==
LOC: INPPIK 15:21 → EMEROOPIK 15:21 → INPPIK 16:43
PROVIDERS: ADMIT Family Medicine; ATTEND Nurse Practitioner Family

== ENCOUNTER 2020-06-26 15:43 | Inpatient (IN) ==
[2020-06-26] MEDS ORDERED: Acetaminophen 325 MG TABLET PO PRN (16:16)
[2020-06-26] MEDS: Simethicone 80 MG TAB.CHEW PO SCH (20:04)
[2020-06-26] MEDS: Psyllium 1 PACKET POWD.PACK PO SCH (20:05)
[2020-06-26] MEDS: Melatonin 3 MG TABLET PO SCH (20:05)
[2020-06-26] MEDS: Budesonide/Formoterol 80/4.5 1 PUFF INH IH SCH (22:16)
[2020-06-27] MEDS: Psyllium 1 PACKET POWD.PACK PO SCH ×2 (08:25→21:03)
[2020-06-27] MEDS: Cyanocobalamin (B-12) 1,000 MCG TABLET PO SCH (08:27)
[2020-06-27] MEDS: *HR* Amiodarone 200 MG TABLET PO SCH (08:27)
[2020-06-27 08:46] LABS: Basophils % 0.2 %; Eosinophils # 0.2 K/mcL (0.0-0.6); Eosinophils % 1.5 %; Hematocrit 24.8 % (37.5-50.1); Hemoglobin 7.8 g/dL (12.9-16.9); Immature Granulocytes % 1.4 % (0-4); Lymphocytes # 0.5 K/mcL (0.6-4.6); Lymphocytes % 3.9 %; Mean Corpuscular HGB Conc 31.5 g/dL (31.6-35.5); Mean Corpuscular Hemoglobin 30.5 pg (28.0-33.3); Mean Corpuscular Volume 96.9 fL (83.0-100.0); Mean Platelet Volume 9.4 fL (9.4-12.4); Monocytes % 3.4 %; Neutrophils # 11.7 K/mcL (1.6-8.9); Platelet Count 313 K/mcL (140-400); Red Blood Count 2.56 M/mcL (4.19-5.50); Red Cell Distribution Width 14.6 % (11.5-14.5); Segmented Neutrophils % 89.6 %; White Blood Count 13.1 K/mcL (4.3-11.1)
[2020-06-27 08:49] LABS: Monocytes # 0.5 K/mcL (0.0-1.3)
[2020-06-27] MEDS ORDERED: Furosemide 20 MG TABLET PO SCH (09:00)
[2020-06-27 09:28] LABS: BUN/Creatinine Ratio 20 (6-26); Blood Urea Nitrogen 19 mg/dL (8-23); Calcium 8.6 mg/dL (8.6-10.3); Carbon Dioxide 28 mEq/L (23-29); Chloride 97 mEq/L (98-107); Glucose 109 mg/dL (70-105); Osmolality,Calculated 277 (280-300); Potassium 3.9 mEq/L (3.5-5.1); Sodium 132 mEq/L (136-145); eGFR For African Americans > 60 (> 60); eGFR For Non-African Americans > 60 (> 60)
[2020-06-27] MEDS: Budesonide/Formoterol 80/4.5 1 PUFF INH IH SCH ×2 (10:35→21:15)
[2020-06-27] MEDS: Furosemide 20 MG TABLET PO SCH ×2 (12:16→16:19)
[2020-06-27] MEDS ORDERED: Furosemide 40 MG/4 ML VIAL IVP ONE (15:32)
[2020-06-27] MEDS ORDERED: Perflutren Lipid Microsphere 1.3 ML in 0.9 % Sodium Chloride 8.7 ML IVP PRN (15:33)
[2020-06-27] MEDS ORDERED: Ipratropium/Albuterol Neb 3 ML IH ONE (15:35)
[2020-06-27] MEDS: *HR* Rivaroxaban 15 MG TABLET PO SCH (16:18)
[2020-06-27] MEDS: Melatonin 3 MG TABLET PO SCH (21:02)
[2020-06-27] MEDS: Simethicone 80 MG TAB.CHEW PO SCH (21:02)
[2020-06-28] MEDS: Psyllium 1 PACKET POWD.PACK PO SCH ×2 (08:33→21:09)
[2020-06-28] MEDS: *HR* Amiodarone 200 MG TABLET PO SCH (08:34)
[2020-06-28] MEDS: Cyanocobalamin (B-12) 1,000 MCG TABLET PO SCH (08:34)
[2020-06-28 09:06] LABS: Basophils % 0.2 %; Eosinophils # 0.2 K/mcL (0.0-0.6); Eosinophils % 1.4 %; Hematocrit 28.3 % (37.5-50.1); Immature Granulocytes % 0.8 % (0-4); Lymphocytes # 0.8 K/mcL (0.6-4.6); Lymphocytes % 4.6 %; Mean Corpuscular HGB Conc 31.8 g/dL (31.6-35.5); Mean Corpuscular Hemoglobin 30.7 pg (28.0-33.3); Mean Corpuscular Volume 96.6 fL (83.0-100.0); Mean Platelet Volume 9.1 fL (9.4-12.4); Monocytes # 0.6 K/mcL (0.0-1.3); Monocytes % 3.6 %; Neutrophils # 14.6 K/mcL (1.6-8.9); Platelet Count 430 K/mcL (140-400); Red Blood Count 2.93 M/mcL (4.19-5.50); Red Cell Distribution Width 14.6 % (11.5-14.5); Segmented Neutrophils % 89.4 %; White Blood Count 16.3 K/mcL (4.3-11.1)
[2020-06-28 09:19] LABS: Alanine Aminotransferase 26 Units/L (7-52); Albumin 3.3 g/dL (3.5-5.7); Alkaline Phosphatase 94 Units/L (34-104); Aspartate Amino Transferase 22 Units/L (13-39); BUN/Creatinine Ratio 23 (6-26); Bilirubin,Total 0.8 mg/dL (0.3-1.0); Blood Urea Nitrogen 23 mg/dL (8-23); Calcium 8.9 mg/dL (8.6-10.3); Carbon Dioxide 33 mEq/L (23-29); Chloride 94 mEq/L (98-107); Globulin 3.4 g/dL (2.4-3.5); Glucose 127 mg/dL (70-105); Osmolality,Calculated 283 (280-300); Potassium 4.5 mEq/L (3.5-5.1); Sodium 134 mEq/L (136-145); Total Protein 6.7 g/dL (6.4-8.9); eGFR For African Americans > 60 (> 60); eGFR For Non-African Americans > 60 (> 60)
[2020-06-28] MEDS: Budesonide/Formoterol 80/4.5 1 PUFF INH IH SCH ×2 (09:57→22:09)
[2020-06-28] MEDS: Furosemide 40 MG TABLET PO SCH ×2 (11:40→16:32)
[2020-06-28] MEDS: *HR* Rivaroxaban 15 MG TABLET PO SCH (16:32)
[2020-06-28] MEDS: Melatonin 3 MG TABLET PO SCH (21:09)
[2020-06-28] MEDS: Simethicone 80 MG TAB.CHEW PO SCH (21:09)
[2020-06-29 06:30] LABS: Basophils % 0.3 %; Eosinophils # 0.3 K/mcL (0.0-0.6); Eosinophils % 2.5 %; Hematocrit 24.9 % (37.5-50.1); Hemoglobin 7.8 g/dL (12.9-16.9); Immature Granulocytes % 1.2 % (0-4); Lymphocytes # 0.7 K/mcL (0.6-4.6); Lymphocytes % 6.4 %; Mean Corpuscular HGB Conc 31.3 g/dL (31.6-35.5); Mean Corpuscular Hemoglobin 30.5 pg (28.0-33.3); Mean Corpuscular Volume 97.3 fL (83.0-100.0); Mean Platelet Volume 8.6 fL (9.4-12.4); Monocytes # 0.6 K/mcL (0.0-1.3); Monocytes % 4.9 %; Neutrophils # 9.5 K/mcL (1.6-8.9); Platelet Count 320 K/mcL (140-400); Red Blood Count 2.56 M/mcL (4.19-5.50); Red Cell Distribution Width 14.7 % (11.5-14.5); Segmented Neutrophils % 84.7 %; White Blood Count 11.2 K/mcL (4.3-11.1)
[2020-06-29 06:51] LABS: Alanine Aminotransferase 22 Units/L (7-52); Alkaline Phosphatase 81 Units/L (34-104); Aspartate Amino Transferase 19 Units/L (13-39); BUN/Creatinine Ratio 22 (6-26); Bilirubin,Total 0.7 mg/dL (0.3-1.0); Blood Urea Nitrogen 27 mg/dL (8-23); Calcium 8.4 mg/dL (8.6-10.3); Carbon Dioxide 32 mEq/L (23-29); Chloride 95 mEq/L (98-107); Glucose 119 mg/dL (70-105); Osmolality,Calculated 282 (280-300); Potassium 4.2 mEq/L (3.5-5.1); Sodium 133 mEq/L (136-145); eGFR For African Americans > 60 (> 60); eGFR For Non-African Americans 56 (> 60)
[2020-06-29] MEDS: Psyllium 1 PACKET POWD.PACK PO SCH ×2 (09:21→19:39)
[2020-06-29] MEDS: Cyanocobalamin (B-12) 1,000 MCG TABLET PO SCH (09:22)
[2020-06-29] MEDS: Furosemide 40 MG TABLET PO SCH (09:22)
[2020-06-29] MEDS: *HR* Amiodarone 200 MG TABLET PO SCH (09:22)
[2020-06-29] MEDS: Budesonide/Formoterol 80/4.5 1 PUFF INH IH SCH ×2 (09:55→22:36)
[2020-06-29] MEDS: *HR* Rivaroxaban 15 MG TABLET PO SCH (16:58)
[2020-06-29] MEDS: Melatonin 3 MG TABLET PO SCH (19:39)
[2020-06-29] MEDS: Simethicone 80 MG TAB.CHEW PO SCH (19:41)
[2020-06-30] MEDS: Psyllium 1 PACKET POWD.PACK PO SCH ×2 (08:55→19:39)
[2020-06-30] MEDS: *HR* Amiodarone 200 MG TABLET PO SCH (08:55)
[2020-06-30] MEDS: Cyanocobalamin (B-12) 1,000 MCG TABLET PO SCH (08:55)
[2020-06-30] MEDS: Furosemide 20 MG TABLET PO SCH ×3 (08:55→17:49)
[2020-06-30] MEDS: Budesonide/Formoterol 80/4.5 1 PUFF INH IH SCH ×2 (09:58→21:08)
[2020-06-30] MEDS ORDERED: polyethylene glycoL 3350 17 GM POWD.PACK PO ONE (17:45)
[2020-06-30] MEDS: *HR* Rivaroxaban 15 MG TABLET PO SCH (17:49)
[2020-06-30] MEDS: Melatonin 3 MG TABLET PO SCH (19:39)
[2020-06-30] MEDS: Sennosides/Docusate Sodium TABLET PO SCH (19:39)
[2020-06-30] MEDS: Simethicone 80 MG TAB.CHEW PO SCH (19:39)
[2020-07-01] MEDS: Psyllium 1 PACKET POWD.PACK PO SCH (08:05)
[2020-07-01] MEDS: Cyanocobalamin (B-12) 1,000 MCG TABLET PO SCH (08:05)
[2020-07-01] MEDS: Sennosides/Docusate Sodium TABLET PO SCH (08:05)
[2020-07-01] MEDS: Furosemide 20 MG TABLET PO SCH ×2 (08:06→16:56)
[2020-07-01] MEDS: *HR* Amiodarone 200 MG TABLET PO SCH (08:06)
[2020-07-01] MEDS: Budesonide/Formoterol 80/4.5 1 PUFF INH IH SCH (10:11)
[2020-07-01 11:33] VITALS: BP 102/62
[2020-07-01 12:42] LABS: Basophils % 0.3 %; Eosinophils # 0.2 K/mcL (0.0-0.6); Eosinophils % 1.3 %; Hematocrit 27.5 % (37.5-50.1); Hemoglobin 8.6 g/dL (12.9-16.9); Immature Granulocytes % 1.8 % (0-4); Lymphocytes # 0.6 K/mcL (0.6-4.6); Lymphocytes % 4.7 %; Mean Corpuscular HGB Conc 31.3 g/dL (31.6-35.5); Mean Corpuscular Hemoglobin 30.4 pg (28.0-33.3); Mean Corpuscular Volume 97.2 fL (83.0-100.0); Mean Platelet Volume 9.1 fL (9.4-12.4); Monocytes # 0.7 K/mcL (0.0-1.3); Monocytes % 5.5 %; Neutrophils # 10.3 K/mcL (1.6-8.9); Platelet Count 389 K/mcL (140-400); Red Blood Count 2.83 M/mcL (4.19-5.50); Red Cell Distribution Width 14.8 % (11.5-14.5); Segmented Neutrophils % 86.4 %; White Blood Count 11.9 K/mcL (4.3-11.1)
[2020-07-01 12:55] LABS: Alanine Aminotransferase 22 Units/L (7-52); Albumin 3.2 g/dL (3.5-5.7); Albumin/Globulin Ratio 0.9 (1.1-2.2); Alkaline Phosphatase 90 Units/L (34-104); Aspartate Amino Transferase 21 Units/L (13-39); BUN/Creatinine Ratio 22 (6-26); Bilirubin,Total 0.7 mg/dL (0.3-1.0); Blood Urea Nitrogen 27 mg/dL (8-23); Calcium 8.7 mg/dL (8.6-10.3); Carbon Dioxide 30 mEq/L (23-29); Chloride 92 mEq/L (98-107); Globulin 3.4 g/dL (2.4-3.5); Glucose 117 mg/dL (70-105); Osmolality,Calculated 276 (280-300); Potassium 4.7 mEq/L (3.5-5.1); Sodium 130 mEq/L (136-145); Total Protein 6.6 g/dL (6.4-8.9); eGFR For African Americans > 60 (> 60); eGFR For Non-African Americans 56 (> 60)
[2020-07-01 16:06] LABS: Basophils # 0.1 K/mcL (0.0-0.2); Basophils % 0.4 %; Eosinophils # 0.2 K/mcL (0.0-0.6); Eosinophils % 1.2 %; Hematocrit 27.5 % (37.5-50.1); Hemoglobin 8.6 g/dL (12.9-16.9); Immature Granulocytes % 1.7 % (0-4); Lymphocytes # 0.8 K/mcL (0.6-4.6); Lymphocytes % 5.6 %; Mean Corpuscular HGB Conc 31.3 g/dL (31.6-35.5); Mean Corpuscular Hemoglobin 30.1 pg (28.0-33.3); Mean Corpuscular Volume 96.2 fL (83.0-100.0); Monocytes # 0.6 K/mcL (0.0-1.3); Monocytes % 4.5 %; Neutrophils # 11.7 K/mcL (1.6-8.9); Platelet Count 424 K/mcL (140-400); Red Blood Count 2.86 M/mcL (4.19-5.50); Red Cell Distribution Width 14.9 % (11.5-14.5); Segmented Neutrophils % 86.6 %; White Blood Count 13.5 K/mcL (4.3-11.1)
[2020-07-01] MEDS ORDERED: methylPREDNISolone 125 MG/2 ML VIAL IVP ONE (16:27)
[2020-07-01] MEDS ORDERED: polyethylene glycoL 3350 17 GM POWD.PACK PO ONE (16:27)
[2020-07-01 16:29] LABS: Troponin I < 0.03 ng/mL (< 0.04)
[2020-07-01 16:31] LABS: Alanine Aminotransferase 24 Units/L (7-52); Albumin 3.2 g/dL (3.5-5.7); Albumin/Globulin Ratio 0.9 (1.1-2.2); Alkaline Phosphatase 93 Units/L (34-104); Aspartate Amino Transferase 24 Units/L (13-39); BUN/Creatinine Ratio 24 (6-26); Bilirubin,Total 0.6 mg/dL (0.3-1.0); Blood Urea Nitrogen 28 mg/dL (8-23); Calcium 8.7 mg/dL (8.6-10.3); Carbon Dioxide 30 mEq/L (23-29); Chloride 91 mEq/L (98-107); Globulin 3.4 g/dL (2.4-3.5); Glucose 158 mg/dL (70-105); Magnesium 2.1 mg/dL (1.6-2.6); Osmolality,Calculated 277 (280-300); Phosphorous 3.8 mg/dL (2.7-4.5); Potassium 4.6 mEq/L (3.5-5.1); Sodium 129 mEq/L (136-145); Total Protein 6.6 g/dL (6.4-8.9); eGFR For African Americans > 60 (> 60); eGFR For Non-African Americans 59 (> 60)
[2020-07-01] MEDS: *HR* Rivaroxaban 15 MG TABLET PO SCH (16:56)
[2020-07-01] MEDS ORDERED: Furosemide 20 MG/2 ML VIAL IVP ONE (17:23)
[2020-07-01 21:40] LABS: Triiodothyronine (T3) Free 1.94 pg/mL (2.50-3.90)
== END 2020-07-01 18:53 | disposition short-term general hospital (02) | DRG 189 ==
LOC: INPPIK 15:54
PROVIDERS: ADMIT Family Medicine; ATTEND Family Medicine

== ENCOUNTER 2021-12-25 04:36 | Inpatient (IN) ==
[2021-12-25] MEDS ORDERED: 0.9 % Sodium Chloride 1,000 ML IVC ONE (04:47)
[2021-12-25 05:28] LABS: Basophils % 0.3 %; Eosinophils # 0.1 K/mcL (0.0-0.6); Eosinophils % 0.6 %; Hematocrit 34.2 % (37.5-50.1); Hemoglobin 10.3 g/dL (12.9-16.9); Immature Granulocytes % 0.4 % (0-4); Lymphocytes # 0.7 K/mcL (0.6-4.6); Lymphocytes % 7.8 %; Mean Corpuscular HGB Conc 30.1 g/dL (31.6-35.5); Mean Corpuscular Volume 96.3 fL (83.0-100.0); Monocytes # 0.7 K/mcL (0.0-1.3); Monocytes % 7.7 %; Neutrophils # 7.9 K/mcL (1.6-8.9); Platelet Count 251 K/mcL (140-400); Red Blood Count 3.55 M/mcL (4.19-5.50); Red Cell Distribution Width 16.2 % (11.5-14.5); Segmented Neutrophils % 83.2 %; White Blood Count 9.5 K/mcL (4.3-11.1)
[2021-12-25] MEDS ORDERED: Azithromycin 500 MG in 0.9 % Sodium Chloride 250 ML IVPB ONE (05:42)
[2021-12-25 05:46] LABS: INR 2.4; Prothrombin Time 26.5 Seconds (9.4-12.1)
[2021-12-25 05:53] LABS: Troponin I < 0.03 ng/mL (< 0.04)
[2021-12-25 05:55] LABS: Alanine Aminotransferase 14 Units/L (7-52); Albumin 3.5 g/dL (3.5-5.7); Albumin/Globulin Ratio 1.1 (1.1-2.2); Alkaline Phosphatase 86 Units/L (34-104); Aspartate Amino Transferase 20 Units/L (13-39); BUN/Creatinine Ratio 18 (6-26); Bilirubin,Direct 0.1 mg/dL (0.0-0.2); Bilirubin,Indirect 0.5 mg/dL (0.0-1.0); Bilirubin,Total 0.6 mg/dL (0.3-1.0); Blood Urea Nitrogen 15 mg/dL (8-23); Calcium 9.4 mg/dL (8.6-10.3); Carbon Dioxide 30 mEq/L (23-29); Chloride 102 mEq/L (98-107); Globulin 3.3 g/dL (2.4-3.5); Glucose 118 mg/dL (70-105); Lipase 22 Units/L (11-82); Osmolality,Calculated 296 (280-300); Potassium 3.4 mEq/L (3.5-5.1); Sodium 142 mEq/L (136-145); Total Protein 6.8 g/dL (6.4-8.9)
[2021-12-25] MEDS ORDERED: Melatonin 3 MG TABLET PO PRN (06:45)
[2021-12-25] MEDS ORDERED: Naloxone 0.4 MG/ML INJ IVP PRN (06:45)
[2021-12-25] MEDS ORDERED: Ondansetron 4 MG/2 ML VIAL IVP PRN (06:45)
[2021-12-25] MEDS ORDERED: Potassium Chloride Elixir 20 MEQ/15 ML UDC PO ONE (06:57)
[2021-12-25] MEDS ORDERED: Furosemide 40 MG/4 ML VIAL IVP ONE (06:57)
[2021-12-25 07:14] LABS: Bilirubin,Urine Negative (Negative); Blood,Urine Trace-intact (Negative); Clarity,Urine Slightly Cloudy (Clear); Color,Urine Dark Yellow (Yellow); Glucose,Urine (UA) Normal (Normal); Ketones,Urine Negative (Negative); Leukocyte Esterase,Urine Negative (Negative); Nitrite,Urine Negative (Negative); PH,Urine 5.5 pH Units (5.0-8.0); Protein,Urine 30 mg/dL (Neg-Trace); Specific Gravity,Urine >= 1.030 (1.010-1.025); Urobilinogen,Urine Normal (Normal)
[2021-12-25] MEDS ORDERED: Iopamidol - 370 500 ML MLS IVP ONE (07:23)
[2021-12-25 07:29] LABS: Calcium Oxalate Crystals,Urine Present per hpf; Hyaline Casts,Urine Few per lpf (None Seen)
[2021-12-25 07:30] LABS: Bacteria,Urine Few per hpf (None-Few); Mucus,Urine Many per lpf (None-Few)
[2021-12-25 07:31] LABS: RBC,Urine 0-3 per hpf (0-3); Squamous Epithelial Cell,Urine Few per hpf (None-Few); WBC,Urine 0-3 per hpf (0-3)
[2021-12-25] MEDS: Ipratropium/Albuterol Neb 3 ML IH SCH ×2 (08:31→14:43)
[2021-12-25] MEDS: PSYLLIUM HUSK 0.52 GM PO SCH ×2 (09:55→21:28)
[2021-12-25] MEDS: MetroNIDAZOLE 500 MG/100 ML 500 MG/100 ML BAG IVPB SCH ×2 (10:22→16:23)
[2021-12-25] MEDS: Chlorhexidine Rinse 15 ML MOUTHWASH MM SCH ×2 (10:24→21:27)
[2021-12-25] MEDS: Cyanocobalamin (B-12) 1,000 MCG TABLET PO SCH (10:24)
[2021-12-25] MEDS: Ascorbic Acid 500 MG TABLET PO SCH (10:25)
[2021-12-25] MEDS: Lactobacillus 1 EACH CAP.SPRINK PO SCH ×2 (10:25→21:28)
[2021-12-25] MEDS: Furosemide 40 MG/4 ML VIAL IVP SCH (10:25)
[2021-12-25] MEDS: Metoprolol XL (24 HR) Succ 25 MG TAB.ER.24H PO SCH ×3 (10:25→11:50)
[2021-12-25] MEDS: Acetylcysteine 10% 2 ML INHSOL IH SCH ×3 (11:32→22:18)
[2021-12-25] MEDS ORDERED: Levalbuterol 1 PUFF INHALER IH SCH (16:00)
[2021-12-25] MEDS: *HR* Rivaroxaban 15 MG TABLET PO SCH (16:24)
[2021-12-25] MEDS: Melatonin 3 MG TABLET PO SCH (21:28)
[2021-12-25] MEDS: Levalbuterol Neb 0.63 MG/3 ML IH SCH (22:17)
[2021-12-26] MEDS: MetroNIDAZOLE 500 MG/100 ML 500 MG/100 ML BAG IVPB SCH ×2 (01:07→08:50)
[2021-12-26] MEDS: Levalbuterol Neb 0.63 MG/3 ML IH SCH ×4 (03:23→22:00)
[2021-12-26] MEDS: Acetylcysteine 10% 2 ML INHSOL IH SCH ×4 (03:23→22:00)
[2021-12-26 07:12] LABS: Basophils # 0.1 K/mcL (0.0-0.2); Basophils % 0.6 %; Eosinophils # 0.1 K/mcL (0.0-0.6); Eosinophils % 1.3 %; Hematocrit 29.5 % (37.5-50.1); Hemoglobin 8.9 g/dL (12.9-16.9); Immature Granulocytes % 0.4 % (0-4); Lymphocytes # 0.8 K/mcL (0.6-4.6); Lymphocytes % 10.3 %; Mean Corpuscular HGB Conc 30.2 g/dL (31.6-35.5); Mean Corpuscular Hemoglobin 29.3 pg (28.0-33.3); Mean Platelet Volume 9.9 fL (9.4-12.4); Monocytes # 0.7 K/mcL (0.0-1.3); Monocytes % 8.7 %; Neutrophils # 6.4 K/mcL (1.6-8.9); Platelet Count 242 K/mcL (140-400); Red Blood Count 3.04 M/mcL (4.19-5.50); Red Cell Distribution Width 16.4 % (11.5-14.5); Segmented Neutrophils % 78.7 %; White Blood Count 8.2 K/mcL (4.3-11.1)
[2021-12-26 07:36] LABS: INR 2.3; Prothrombin Time 25.7 Seconds (9.4-12.1)
[2021-12-26 07:39] LABS: Activated Partial Thrombo Time 33.7 Seconds (26.0-36.0)
[2021-12-26] MEDS: Azithromycin 500 MG in 0.9 % Sodium Chloride 250 ML IVPB SCH (07:40)
[2021-12-26 08:06] LABS: Albumin 2.9 g/dL (3.5-5.7); Bilirubin,Total 0.5 mg/dL (0.3-1.0); Globulin 2.9 g/dL (2.4-3.5); Magnesium 1.9 mg/dL (1.6-2.6); Phosphorous 3.2 mg/dL (2.7-4.5); Potassium 3.3 mEq/L (3.5-5.1); Total Protein 5.8 g/dL (6.4-8.9)
[2021-12-26] MEDS: Furosemide 40 MG/4 ML VIAL IVP SCH ×2 (08:47→23:31)
[2021-12-26] MEDS: PSYLLIUM HUSK 0.52 GM PO SCH (08:48)
[2021-12-26] MEDS: Cyanocobalamin (B-12) 1,000 MCG TABLET PO SCH (08:48)
[2021-12-26] MEDS: Metoprolol XL (24 HR) Succ 25 MG TAB.ER.24H PO SCH (08:48)
[2021-12-26] MEDS: Ascorbic Acid 500 MG TABLET PO SCH (08:48)
[2021-12-26] MEDS: Lactobacillus 1 EACH CAP.SPRINK PO SCH ×2 (08:48→23:12)
[2021-12-26] MEDS: levoFLOXacin 750 MG/150 ML 750 MG/150 ML BAG IVPB SCH (08:49)
[2021-12-26] MEDS: Chlorhexidine Rinse 15 ML MOUTHWASH MM SCH ×2 (08:50→23:12)
[2021-12-26] MEDS ORDERED: cefTRIAXone 1,000 MG in 0.9 % Sodium Chloride Mini Bag 100 ML IVPB SCH (09:00)
[2021-12-26] MEDS ORDERED: Potassium Chloride Elixir 20 MEQ/15 ML UDC PO ONE (09:42)
[2021-12-26] MEDS ORDERED: MetroNIDAZOLE 500 MG/100 ML 500 MG/100 ML BAG IVPB SCH (16:00)
[2021-12-26] MEDS: *HR* Rivaroxaban 15 MG TABLET PO SCH (16:52)
[2021-12-26] MEDS: metroNIDAZOLE 500 MG TABLET PO SCH ×2 (16:53→23:11)
[2021-12-26] MEDS: Budesonide/Formoterol 160/4.5 1 PUFF INH IH SCH (22:00)
[2021-12-26] MEDS: Melatonin 3 MG TABLET PO SCH (23:12)
[2021-12-27] MEDS: Levalbuterol Neb 0.63 MG/3 ML IH SCH ×4 (04:29→22:32)
[2021-12-27] MEDS: Acetylcysteine 10% 2 ML INHSOL IH SCH ×2 (04:29→11:40)
[2021-12-27 04:59] LABS: Basophils % 0.2 %; Eosinophils # 0.1 K/mcL (0.0-0.6); Eosinophils % 0.8 %; Hematocrit 30.3 % (37.5-50.1); Hemoglobin 8.9 g/dL (12.9-16.9); Immature Granulocytes % 0.5 % (0-4); Lymphocytes # 0.8 K/mcL (0.6-4.6); Lymphocytes % 9.6 %; Mean Corpuscular HGB Conc 29.4 g/dL (31.6-35.5); Mean Corpuscular Hemoglobin 28.8 pg (28.0-33.3); Mean Corpuscular Volume 98.1 fL (83.0-100.0); Mean Platelet Volume 10.3 fL (9.4-12.4); Monocytes # 0.7 K/mcL (0.0-1.3); Monocytes % 7.9 %; Neutrophils # 6.9 K/mcL (1.6-8.9); Platelet Count 274 K/mcL (140-400); Red Blood Count 3.09 M/mcL (4.19-5.50); Red Cell Distribution Width 16.4 % (11.5-14.5); White Blood Count 8.5 K/mcL (4.3-11.1)
[2021-12-27 05:20] LABS: Calcium 9.2 mg/dL (8.6-10.3); Magnesium 1.9 mg/dL (1.6-2.6); Potassium 3.7 mEq/L (3.5-5.1)
[2021-12-27] MEDS: Azithromycin 500 MG in 0.9 % Sodium Chloride 250 ML IVPB SCH (07:29)
[2021-12-27] MEDS: Ascorbic Acid 500 MG TABLET PO SCH (09:57)
[2021-12-27] MEDS: Lactobacillus 1 EACH CAP.SPRINK PO SCH ×2 (09:57→20:40)
[2021-12-27] MEDS: Cyanocobalamin (B-12) 1,000 MCG TABLET PO SCH (09:57)
[2021-12-27] MEDS: Metoprolol XL (24 HR) Succ 25 MG TAB.ER.24H PO SCH (09:57)
[2021-12-27] MEDS: PSYLLIUM HUSK 0.52 GM PO SCH ×2 (09:58→20:39)
[2021-12-27] MEDS: Chlorhexidine Rinse 15 ML MOUTHWASH MM SCH ×2 (09:58→20:40)
[2021-12-27] MEDS: metroNIDAZOLE 500 MG TABLET PO SCH ×3 (09:58→20:40)
[2021-12-27] MEDS: Furosemide 40 MG/4 ML VIAL IVP SCH (09:59)
[2021-12-27] MEDS: levoFLOXacin 750 MG/150 ML 750 MG/150 ML BAG IVPB SCH (10:01)
[2021-12-27] MEDS ORDERED: Aspirin 81 MG TAB.CHEW PO SCH (10:15)
[2021-12-27] MEDS: Megestrol Acetate 400 MG/10 ML UDC PO SCH (10:16)
[2021-12-27] MEDS: Budesonide/Formoterol 160/4.5 1 PUFF INH IH SCH ×2 (11:31→22:13)
[2021-12-27] MEDS: *HR* Rivaroxaban 15 MG TABLET PO SCH (16:27)
[2021-12-27] MEDS: Furosemide 20 MG TABLET PO SCH (16:27)
[2021-12-27] MEDS: Melatonin 3 MG TABLET PO SCH (20:39)
[2021-12-27] MEDS ORDERED: Levalbuterol Neb 0.63 MG/3 ML ONE (22:19)
[2021-12-28] MEDS: PSYLLIUM HUSK 0.52 GM PO SCH ×3 (01:11→20:37)
[2021-12-28] MEDS: Levalbuterol Neb 0.63 MG/3 ML IH SCH ×4 (04:43→21:27)
[2021-12-28 07:26] LABS: Calcium 9.3 mg/dL (8.6-10.3); Magnesium 1.9 mg/dL (1.6-2.6); Potassium 3.7 mEq/L (3.5-5.1)
[2021-12-28 07:28] LABS: Basophils % 0.4 %; Eosinophils % 0.3 %; Hematocrit 28.1 % (37.5-50.1); Hemoglobin 8.6 g/dL (12.9-16.9); Immature Granulocytes % 0.5 % (0-4); Lymphocytes # 0.7 K/mcL (0.6-4.6); Lymphocytes % 7.2 %; Mean Corpuscular HGB Conc 30.6 g/dL (31.6-35.5); Mean Corpuscular Hemoglobin 29.2 pg (28.0-33.3); Mean Corpuscular Volume 95.3 fL (83.0-100.0); Mean Platelet Volume 10.4 fL (9.4-12.4); Monocytes # 0.7 K/mcL (0.0-1.3); Monocytes % 6.9 %; Platelet Count 291 K/mcL (140-400); Red Blood Count 2.95 M/mcL (4.19-5.50); Red Cell Distribution Width 16.2 % (11.5-14.5); Segmented Neutrophils % 84.7 %; White Blood Count 9.5 K/mcL (4.3-11.1)
[2021-12-28] MEDS: Budesonide/Formoterol 160/4.5 1 PUFF INH IH SCH ×2 (08:53→21:26)
[2021-12-28] MEDS ORDERED: levoFLOXacin 750 MG TABLET PO SCH (09:00)
[2021-12-28] MEDS: Chlorhexidine Rinse 15 ML MOUTHWASH MM SCH ×2 (09:52→19:53)
[2021-12-28] MEDS: Furosemide 20 MG TABLET PO SCH (09:52)
[2021-12-28] MEDS: Megestrol Acetate 400 MG/10 ML UDC PO SCH (09:52)
[2021-12-28] MEDS: Ascorbic Acid 500 MG TABLET PO SCH (10:00)
[2021-12-28] MEDS: Cyanocobalamin (B-12) 1,000 MCG TABLET PO SCH (10:00)
[2021-12-28] MEDS: metroNIDAZOLE 500 MG TABLET PO SCH ×3 (10:00→19:53)
[2021-12-28] MEDS: Metoprolol XL (24 HR) Succ 25 MG TAB.ER.24H PO SCH ×2 (10:01→21:51)
[2021-12-28] MEDS: Lactobacillus 1 EACH CAP.SPRINK PO SCH ×2 (10:01→19:54)
[2021-12-28] MEDS ORDERED: 0.9 % Sodium Chloride 500 ML IVC ONE (11:37)
[2021-12-28] MEDS ORDERED: 0.9 % Sodium Chloride 500 ML IV ONE ×2 (15:00→15:15)
[2021-12-28] MEDS: *HR* Rivaroxaban 15 MG TABLET PO SCH (18:20)
[2021-12-28] MEDS ORDERED: 0.9 % Sodium Chloride 250 ML IVC ONE (18:56)
[2021-12-28] MEDS ORDERED: *HR* Metoprolol 5 MG/5 ML VIAL IVP ONE (18:57)
[2021-12-28] MEDS: Melatonin 3 MG TABLET PO SCH (19:54)
[2021-12-28] MEDS: Simethicone 80 MG TAB.CHEW PO PRN (20:13)
[2021-12-28] MEDS: Acetaminophen 325 MG TABLET PO PRN (20:13)
[2021-12-28] MEDS: MethylPREDNISolone 40 MG/ML VIAL IVP SCH (21:51)
[2021-12-29] MEDS ORDERED: *HR* Metoprolol 5 MG/5 ML VIAL IVP PRN (00:08)
[2021-12-29] MEDS ORDERED: *HR* Metoprolol 5 MG/5 ML VIAL IVP ONE (00:14)
[2021-12-29] MEDS: Levalbuterol Neb 0.63 MG/3 ML IH SCH ×4 (04:11→22:10)
[2021-12-29] MEDS: MethylPREDNISolone 40 MG/ML VIAL IVP SCH ×3 (06:12→22:10)
[2021-12-29] MEDS: Lactobacillus 1 EACH CAP.SPRINK PO SCH ×2 (08:15→20:07)
[2021-12-29] MEDS: metroNIDAZOLE 500 MG TABLET PO SCH ×3 (08:16→20:07)
[2021-12-29] MEDS: Cyanocobalamin (B-12) 1,000 MCG TABLET PO SCH (08:16)
[2021-12-29] MEDS: Ascorbic Acid 500 MG TABLET PO SCH (08:16)
[2021-12-29] MEDS: Chlorhexidine Rinse 15 ML MOUTHWASH MM SCH ×2 (08:17→20:07)
[2021-12-29] MEDS: Metoprolol XL (24 HR) Succ 25 MG TAB.ER.24H PO SCH ×2 (08:17→20:08)
[2021-12-29] MEDS: Megestrol Acetate 400 MG/10 ML UDC PO SCH (08:17)
[2021-12-29] MEDS ORDERED: Metoprolol XL (24 HR) Succ 25 MG TAB.ER.24H PO SCH (09:00)
[2021-12-29] MEDS: Budesonide/Formoterol 160/4.5 1 PUFF INH IH SCH ×2 (09:10→22:09)
[2021-12-29 09:32] LABS: Hematocrit 30.6 % (37.5-50.1); Hemoglobin 9.2 g/dL (12.9-16.9); Mean Corpuscular HGB Conc 30.1 g/dL (31.6-35.5); Mean Corpuscular Hemoglobin 28.8 pg (28.0-33.3); Mean Corpuscular Volume 95.9 fL (83.0-100.0); Mean Platelet Volume 10.5 fL (9.4-12.4); Platelet Count 373 K/mcL (140-400); Red Blood Count 3.19 M/mcL (4.19-5.50); Red Cell Distribution Width 16.3 % (11.5-14.5); White Blood Count 10.3 K/mcL (4.3-11.1)
[2021-12-29] MEDS: PSYLLIUM HUSK 0.52 GM PO SCH ×2 (10:11→20:08)
[2021-12-29 10:17] LABS: Calcium 9.5 mg/dL (8.6-10.3); Potassium 4.7 mEq/L (3.5-5.1)
[2021-12-29] MEDS ORDERED: *HR* Digoxin 0.5 MG/2 ML AMPUL IVP ONE (12:17)
[2021-12-29] MEDS: cefTRIAXone 1,000 MG in 0.9 % Sodium Chloride 10 ML IVP SCH (13:28)
[2021-12-29] MEDS: *HR* Amiodarone 200 MG TABLET PO SCH ×2 (13:29→20:07)
[2021-12-29] MEDS: *HR* Rivaroxaban 15 MG TABLET PO SCH (16:28)
[2021-12-29] MEDS: Melatonin 3 MG TABLET PO SCH (20:07)
[2021-12-29] MEDS: Simethicone 80 MG TAB.CHEW PO PRN (22:14)
[2021-12-30] MEDS: Levalbuterol Neb 0.63 MG/3 ML IH SCH ×4 (03:40→21:46)
[2021-12-30] MEDS: MethylPREDNISolone 40 MG/ML VIAL IVP SCH ×3 (05:43→23:35)
[2021-12-30 05:57] LABS: Hematocrit 27.1 % (37.5-50.1); Hemoglobin 8.7 g/dL (12.9-16.9); Mean Corpuscular HGB Conc 32.1 g/dL (31.6-35.5); Mean Corpuscular Hemoglobin 29.4 pg (28.0-33.3); Mean Corpuscular Volume 91.6 fL (83.0-100.0); Mean Platelet Volume 10.5 fL (9.4-12.4); Platelet Count 361 K/mcL (140-400); Red Blood Count 2.96 M/mcL (4.19-5.50); Red Cell Distribution Width 16.2 % (11.5-14.5); White Blood Count 11.8 K/mcL (4.3-11.1)
[2021-12-30 06:16] LABS: Calcium 9.2 mg/dL (8.6-10.3); Magnesium 2.1 mg/dL (1.6-2.6); Potassium 4.6 mEq/L (3.5-5.1)
[2021-12-30] MEDS: Budesonide/Formoterol 160/4.5 1 PUFF INH IH SCH ×2 (08:47→21:45)
[2021-12-30] MEDS: Chlorhexidine Rinse 15 ML MOUTHWASH MM SCH ×2 (10:13→23:31)
[2021-12-30] MEDS: Megestrol Acetate 400 MG/10 ML UDC PO SCH (10:14)
[2021-12-30] MEDS: *HR* Amiodarone 200 MG TABLET PO SCH ×2 (10:22→23:33)
[2021-12-30] MEDS: Lactobacillus 1 EACH CAP.SPRINK PO SCH ×2 (10:22→23:33)
[2021-12-30] MEDS: metroNIDAZOLE 500 MG TABLET PO SCH ×3 (10:22→23:32)
[2021-12-30] MEDS: Ascorbic Acid 500 MG TABLET PO SCH (10:24)
[2021-12-30] MEDS: Metoprolol XL (24 HR) Succ 25 MG TAB.ER.24H PO SCH ×2 (10:24→23:33)
[2021-12-30] MEDS: Cyanocobalamin (B-12) 1,000 MCG TABLET PO SCH (10:24)
[2021-12-30] MEDS: PSYLLIUM HUSK 0.52 GM PO SCH ×2 (10:25→23:36)
[2021-12-30] MEDS: cefTRIAXone 1,000 MG in 0.9 % Sodium Chloride 10 ML IVP SCH (14:07)
[2021-12-30] MEDS: *HR* Rivaroxaban 15 MG TABLET PO SCH (16:45)
[2021-12-30] MEDS: Melatonin 3 MG TABLET PO SCH (23:32)
[2021-12-30] MEDS: Simethicone 80 MG TAB.CHEW PO PRN (23:33)
[2021-12-30] MEDS: Acetaminophen 325 MG TABLET PO PRN (23:33)
[2021-12-31] MEDS: Levalbuterol Neb 0.63 MG/3 ML IH SCH ×4 (04:29→21:12)
[2021-12-31] MEDS: MethylPREDNISolone 40 MG/ML VIAL IVP SCH ×3 (06:01→22:13)
[2021-12-31 07:52] LABS: Hemoglobin 8.9 g/dL (12.9-16.9); Mean Corpuscular HGB Conc 31.8 g/dL (31.6-35.5); Mean Corpuscular Hemoglobin 29.1 pg (28.0-33.3); Mean Corpuscular Volume 91.5 fL (83.0-100.0); Mean Platelet Volume 10.9 fL (9.4-12.4); Platelet Count 367 K/mcL (140-400); Red Blood Count 3.06 M/mcL (4.19-5.50); Red Cell Distribution Width 16.3 % (11.5-14.5); White Blood Count 13.4 K/mcL (4.3-11.1)
[2021-12-31 09:24] LABS: Calcium 9.2 mg/dL (8.6-10.3); Potassium 4.8 mEq/L (3.5-5.1)
[2021-12-31] MEDS: Budesonide/Formoterol 160/4.5 1 PUFF INH IH SCH ×2 (09:41→21:12)
[2021-12-31] MEDS: Megestrol Acetate 400 MG/10 ML UDC PO SCH (10:59)
[2021-12-31] MEDS: Cyanocobalamin (B-12) 1,000 MCG TABLET PO SCH (10:59)
[2021-12-31] MEDS: Lactobacillus 1 EACH CAP.SPRINK PO SCH ×2 (10:59→22:12)
[2021-12-31] MEDS: metroNIDAZOLE 500 MG TABLET PO SCH ×3 (10:59→22:12)
[2021-12-31] MEDS: Ascorbic Acid 500 MG TABLET PO SCH (10:59)
[2021-12-31] MEDS: Chlorhexidine Rinse 15 ML MOUTHWASH MM SCH ×2 (10:59→22:12)
[2021-12-31] MEDS: *HR* Amiodarone 200 MG TABLET PO SCH ×2 (11:00→22:12)
[2021-12-31] MEDS: Metoprolol XL (24 HR) Succ 25 MG TAB.ER.24H PO SCH ×2 (11:00→22:12)
[2021-12-31] MEDS: PSYLLIUM HUSK 0.52 GM PO SCH ×2 (11:00→22:14)
[2021-12-31] MEDS: cefTRIAXone 1,000 MG in 0.9 % Sodium Chloride 10 ML IVP SCH (13:31)
[2021-12-31] MEDS: *HR* Rivaroxaban 15 MG TABLET PO SCH (15:50)
[2021-12-31] MEDS ORDERED: MethylPREDNISolone 40 MG/ML VIAL IVP SCH (16:16)
[2021-12-31] MEDS: Melatonin 3 MG TABLET PO SCH (22:13)
[2021-12-31] MEDS: Acetaminophen 325 MG TABLET PO PRN (22:14)
[2022-01-01] MEDS: Levalbuterol Neb 0.63 MG/3 ML IH SCH ×4 (04:02→21:38)
[2022-01-01] MEDS ORDERED: Doxycycline 100 MG in 0.9 % Sodium Chloride Mini Bag 100 ML IVPB SCH (06:00)
[2022-01-01] MEDS: MethylPREDNISolone 40 MG/ML VIAL IVP SCH (06:06)
[2022-01-01 06:21] LABS: Basophils % 0.1 %; Hematocrit 28.5 % (37.5-50.1); Hemoglobin 9.1 g/dL (12.9-16.9); Immature Granulocytes % 0.5 % (0-4); Lymphocytes # 0.4 K/mcL (0.6-4.6); Lymphocytes % 3.1 %; Mean Corpuscular HGB Conc 31.9 g/dL (31.6-35.5); Mean Corpuscular Volume 90.8 fL (83.0-100.0); Mean Platelet Volume 10.9 fL (9.4-12.4); Monocytes # 0.8 K/mcL (0.0-1.3); Monocytes % 5.9 %; Neutrophils # 11.7 K/mcL (1.6-8.9); Nucleated Red Blood Cells 0.2 /100 WBC (0); Platelet Count 327 K/mcL (140-400); Red Blood Count 3.14 M/mcL (4.19-5.50); Red Cell Distribution Width 16.5 % (11.5-14.5); Segmented Neutrophils % 90.4 %; White Blood Count 12.9 K/mcL (4.3-11.1)
[2022-01-01 06:38] LABS: Bilirubin,Indirect 0.6 mg/dL (0.0-1.0); Bilirubin,Total 1.6 mg/dL (0.3-1.0)
[2022-01-01 06:39] LABS: Calcium 9.3 mg/dL (8.6-10.3); Potassium 4.8 mEq/L (3.5-5.1)
[2022-01-01] MEDS: Budesonide/Formoterol 160/4.5 1 PUFF INH IH SCH ×2 (09:03→21:38)
[2022-01-01] MEDS: PSYLLIUM HUSK 0.52 GM PO SCH (12:04)
[2022-01-01] MEDS: Chlorhexidine Rinse 15 ML MOUTHWASH MM SCH ×2 (12:04→21:44)
[2022-01-01] MEDS: metroNIDAZOLE 500 MG TABLET PO SCH ×3 (12:04→21:44)
[2022-01-01] MEDS: *HR* Amiodarone 200 MG TABLET PO SCH ×2 (12:04→21:44)
[2022-01-01] MEDS: Lactobacillus 1 EACH CAP.SPRINK PO SCH ×2 (12:04→21:44)
[2022-01-01] MEDS: Ascorbic Acid 500 MG TABLET PO SCH (12:05)
[2022-01-01] MEDS: Cyanocobalamin (B-12) 1,000 MCG TABLET PO SCH (12:05)
[2022-01-01] MEDS: Metoprolol XL (24 HR) Succ 25 MG TAB.ER.24H PO SCH ×2 (12:05→21:45)
[2022-01-01] MEDS ORDERED: E-Z-PAQUE (BARIUM SULF) SUSP 1 BOTTLE PO ONE (15:22)
[2022-01-01] MEDS: E-Z-HD (BARIUM SULF) SUSPENSION PO ONE ×2 (15:25→15:27)
[2022-01-01] MEDS: *HR* Rivaroxaban 15 MG TABLET PO SCH (16:22)
[2022-01-01] MEDS ORDERED: D5% in 0.45% NACL 1,000 ML IVC SCH (17:15)
[2022-01-01] MEDS: Megestrol Acetate 400 MG/10 ML UDC PO SCH (21:24)
[2022-01-01] MEDS: Cefdinir 300 MG CAPSULE PO SCH (21:44)
[2022-01-01] MEDS: Simethicone 80 MG TAB.CHEW PO PRN (21:45)
[2022-01-01] MEDS: Melatonin 3 MG TABLET PO SCH (21:45)
[2022-01-02] MEDS: Levalbuterol Neb 0.63 MG/3 ML IH SCH ×4 (04:14→21:13)
[2022-01-02] MEDS: PSYLLIUM HUSK 0.52 GM PO SCH ×3 (05:44→21:19)
[2022-01-02 07:22] LABS: Basophils % 0.2 %; Hematocrit 29.3 % (37.5-50.1); Hemoglobin 9.2 g/dL (12.9-16.9); Immature Granulocytes % 0.3 % (0-4); Lymphocytes # 0.4 K/mcL (0.6-4.6); Lymphocytes % 2.8 %; Mean Corpuscular HGB Conc 31.4 g/dL (31.6-35.5); Mean Corpuscular Hemoglobin 28.8 pg (28.0-33.3); Mean Corpuscular Volume 91.6 fL (83.0-100.0); Mean Platelet Volume 12.2 fL (9.4-12.4); Monocytes # 0.8 K/mcL (0.0-1.3); Monocytes % 5.9 %; Nucleated Red Blood Cells 1.1 /100 WBC (0); Platelet Count 219 K/mcL (140-400); Red Cell Distribution Width 16.5 % (11.5-14.5); Segmented Neutrophils % 90.8 %; White Blood Count 13.2 K/mcL (4.3-11.1)
[2022-01-02 07:32] LABS: Magnesium 2.3 mg/dL (1.6-2.6); Potassium 4.9 mEq/L (3.5-5.1)
[2022-01-02] MEDS ORDERED: Furosemide 20 MG/2 ML VIAL IVP ONE (09:03)
[2022-01-02] MEDS: Budesonide/Formoterol 160/4.5 1 PUFF INH IH SCH ×2 (09:17→21:13)
[2022-01-02] MEDS ORDERED: Albumin 25% 25gram/100mL 25 GM/100 ML IV.SOLN IVPB ONE (09:30)
[2022-01-02] MEDS: Cefdinir 300 MG CAPSULE PO SCH ×2 (09:54→21:19)
[2022-01-02] MEDS: *HR* Amiodarone 200 MG TABLET PO SCH ×2 (09:55→21:18)
[2022-01-02] MEDS: Ascorbic Acid 500 MG TABLET PO SCH (09:55)
[2022-01-02] MEDS: Metoprolol XL (24 HR) Succ 25 MG TAB.ER.24H PO SCH ×2 (09:55→21:19)
[2022-01-02] MEDS: Lactobacillus 1 EACH CAP.SPRINK PO SCH ×2 (09:55→21:18)
[2022-01-02] MEDS: Cyanocobalamin (B-12) 1,000 MCG TABLET PO SCH (09:55)
[2022-01-02] MEDS: Chlorhexidine Rinse 15 ML MOUTHWASH MM SCH ×2 (09:55→21:19)
[2022-01-02] MEDS: metroNIDAZOLE 500 MG TABLET PO SCH ×3 (09:55→21:18)
[2022-01-02] MEDS: Simethicone 80 MG TAB.CHEW PO PRN (13:01)
[2022-01-02] MEDS ORDERED: Artificial Tears SOLN 15 ML BOTTLE BOTH EYES PRN (15:57)
[2022-01-02] MEDS ORDERED: D5% in 0.9% NACL 1,000 ML IVC SCH (16:00)
[2022-01-02] MEDS: *HR* Rivaroxaban 15 MG TABLET PO SCH (16:19)
[2022-01-02] MEDS: Nystatin SUSP 5 ML UD.LIQ PO SCH ×2 (16:19→21:19)
[2022-01-02] MEDS: Melatonin 3 MG TABLET PO SCH (21:18)
[2022-01-02] MEDS: Furosemide 20 MG TABLET PO SCH (21:19)
[2022-01-03] MEDS: Levalbuterol Neb 0.63 MG/3 ML IH SCH ×2 (05:46→08:44)
[2022-01-03 07:03] LABS: Eosinophils # 0.1 K/mcL (0.0-0.6); Eosinophils % 0.4 %; Hematocrit 25.7 % (37.5-50.1); Hemoglobin 8.1 g/dL (12.9-16.9); Immature Granulocytes % 0.5 % (0-4); Lymphocytes # 0.3 K/mcL (0.6-4.6); Lymphocytes % 2.9 %; Mean Corpuscular HGB Conc 31.5 g/dL (31.6-35.5); Mean Corpuscular Hemoglobin 28.2 pg (28.0-33.3); Mean Corpuscular Volume 89.5 fL (83.0-100.0); Mean Platelet Volume 11.6 fL (9.4-12.4); Monocytes # 0.5 K/mcL (0.0-1.3); Monocytes % 4.7 %; Neutrophils # 10.4 K/mcL (1.6-8.9); Nucleated Red Blood Cells 0.9 /100 WBC (0); Platelet Count 213 K/mcL (140-400); Red Blood Count 2.87 M/mcL (4.19-5.50); Red Cell Distribution Width 16.5 % (11.5-14.5); Segmented Neutrophils % 91.5 %; White Blood Count 11.4 K/mcL (4.3-11.1)
[2022-01-03 07:28] LABS: Albumin 2.9 g/dL (3.5-5.7); Albumin/Globulin Ratio 1.1 (1.1-2.2); Bilirubin,Total 2.4 mg/dL (0.3-1.0); Calcium 8.6 mg/dL (8.6-10.3); Globulin 2.6 g/dL (2.4-3.5); Total Protein 5.5 g/dL (6.4-8.9)
[2022-01-03] MEDS ORDERED: Iopamidol - 370 500 ML MLS IVP ONE (07:35)
[2022-01-03] MEDS: Budesonide/Formoterol 160/4.5 1 PUFF INH IH SCH (08:42)
[2022-01-03] MEDS: Cyanocobalamin (B-12) 1,000 MCG TABLET PO SCH (08:49)
[2022-01-03] MEDS: *HR* Amiodarone 200 MG TABLET PO SCH (08:49)
[2022-01-03] MEDS: Lactobacillus 1 EACH CAP.SPRINK PO SCH (08:49)
[2022-01-03] MEDS: Ascorbic Acid 500 MG TABLET PO SCH (08:49)
[2022-01-03] MEDS: Cefdinir 300 MG CAPSULE PO SCH (08:49)
[2022-01-03] MEDS: Furosemide 20 MG TABLET PO SCH (08:49)
[2022-01-03] MEDS: Nystatin SUSP 5 ML UD.LIQ PO SCH (08:50)
[2022-01-03] MEDS: Metoprolol XL (24 HR) Succ 25 MG TAB.ER.24H PO SCH (08:50)
[2022-01-03] MEDS: PSYLLIUM HUSK 0.52 GM PO SCH (08:50)
[2022-01-03] MEDS: metroNIDAZOLE 500 MG TABLET PO SCH (08:50)
[2022-01-03] MEDS: Chlorhexidine Rinse 15 ML MOUTHWASH MM SCH (08:50)
[2022-01-03 08:58] VITALS: RESP 18
[2022-01-03] MEDS ORDERED: Albumin 25% 25gram/100mL 25 GM/100 ML IV.SOLN IVPB ONE (09:31)
[2022-01-03] MEDS ORDERED: levoFLOXacin 500 MG/100 ML 500 MG/100 ML BAG IVPB SCH (09:45)
[2022-01-03] MEDS ORDERED: Azithromycin 500 MG in 0.9 % Sodium Chloride 250 ML IVPB SCH (11:00)
[2022-01-03] MEDS ORDERED: cefTRIAXone 1,000 MG in Water for inj. (sterile) 10 ML IVP SCH (11:00)
[2022-01-03] MEDS ORDERED: Furosemide 20 MG/2 ML VIAL IVP ONE (11:30)
[2022-01-03 12:08] VITALS: BP 100/65; PULSE 85; TEMP 97.4; O2SAT 99
[2022-01-03] MEDS ORDERED: *HR* LORazepam 2 MG/ML VIAL IVP ONE (12:30)
[2022-01-03] MEDS ORDERED: *HR* LORazepam 2 MG/ML VIAL ONE (12:40)
[2022-01-03] MEDS ORDERED: Morphine Sulfate 2 MG/ML SYRINGE IVP PRN (12:46)
== END 2022-01-03 17:30 | disposition expired | DRG 871 ==
LOC: EMEROOPIK 04:36 → INPPIK 04:36 → SUATTDRO 06:37 → INPPIK 08:56
PROVIDERS: ADMIT Internal Medicine; ATTEND Nurse Practitioner